=== PATIENT | female | born 1995 | race Caucasian/White ===

== ENCOUNTER 2017-05-08 13:48 | Emergency (ER) | payer SELFPAY ==
[~2017-05-08] VITALS: Ht 170.2 cm; Wt 93.2 kg
[2017-05-08 13:55] VITALS: TEMP 36.9; Ht 170.2 cm; Wt 93.2 kg
[2017-05-08] MEDS ORDERED: GLIP5TAB3 PO (14:26)
[2017-05-08] MEDS ORDERED: GLC/500 PO (14:26)
[2017-05-08] MEDS ORDERED: EFF75 PO (14:26)
--- NOTE | 2017-05-08 14:56 | EMERGENCY ROOM VISIT NOTE ---
History First contact with patient: 14:32 Chief Complaint: VOMITING Stated Complaint: VOMITING, NAUSEA, DIZZY History of Present Illness The patient is a 21 year old female with a past medical history of depression and Diabetes Mellitus who presents to the Emergency Room with complaints of nausea, vomiting, and diarrhea for 2 days. The patient recently moved to [place] and has not yet established with a physician. She ran out of her Effexor (75mg once daily) 1 1/2 weeks ago, and her Glipizide (5mg once daily) and Metformin (500mg BID) since April 21. She had been feeling very fatigued for the last few weeks and began having vomiting Sunday night any time she would try to eat. Sunday she began to feel better but then had worsening nausea and vomiting and passed out twice yesterday evening next to the toilet. She was laying down when she lost consciousness and denies any head trauma. She denies any fevers or chills, sore throat, shortness of breath, or chest pain but does appreciated enlarge suboccipital nodes. Review of Systems See HPI for pertinent positives and negatives. A total of ten systems were reviewed and were otherwise negative. Past Medical/Surgical History Medical Problems: (1) Depression (2) Diabetes mellitus Social History Smoking Status: Never Smoker Current/Historical Medications Scheduled Glipizide (Glucotrol), 5 MG PO DAILY Metformin Hcl (Glucophage), 500 MG PO BID Venlafaxine Hcl (Effexor), 75 MG PO DAILY Physical Exam Vital Signs Date Time Temp Pulse Resp B/P (MAP) Pulse Ox O2 Delivery O2 Flow Rate FiO2 05/08/17 19:04 82 20 149/104 98 Room Air 05/08/17 17:43 89 20 152/96 99 Room Air 05/08/17 16:43 83 20 97 Room Air 05/08/17 15:43 83 20 149/107 100 Room Air 05/08/17 13:55 36.9 90 17 153/102 98 Room Air Physical Exam GENERAL: Awake, alert, well-appearing, in no distress HENT: Normocephalic, atraumatic. Oropharynx unremarkable. Suboccipital lymph node enlargement. EYES: Normal conjunctiva. Sclera non-icteric. NECK: Supple. No nuchal rigidity. FROM. No JVD. RESPIRATORY: Clear to auscultation. CARDIAC: Regular rate, normal rhythm. Extremities warm and well perfused. Pulses equal. ABDOMEN: Soft, non-distended. Tenderness to palpation at the RUQ. No rebound or guarding. No masses. RECTAL: Deferred. MUSCULOSKELETAL: Chest examination reveals no tenderness. The back is symmetrical on inspection without obvious abnormality. LOWER EXTREMITIES: Calves are equal size bilaterally and non-tender. No edema. No discoloration. NEURO: Normal sensorium. No sensory or motor deficits noted. SKIN: No rash or jaundice noted. Medical Decision & Procedures Laboratory Results 05/08/17 15:09 Red Blood Count 5.01, Mean Corpuscular Volume 85.6, Mean Corpuscular Hemoglobin 30.3, Mean Corpuscular Hemoglobin Concent 35.4, Mean Platelet Volume 9.8, Neutrophils (%) (Auto) 65.4, Lymphocytes (%) (Auto) 24.6, Monocytes (%) (Auto) 7.6, Eosinophils (%) (Auto) 1.0, Basophils (%) (Auto) 1.1, Neutrophils # (Auto) 5.76, Lymphocytes # (Auto) 2.17, Monocytes # (Auto) 0.67, Eosinophils # (Auto) 0.09, Basophils # (Auto) 0.10 05/08/17 15:09 Test 05/08/17 15:09 05/08/17 18:00 White Blood Count 8.82 K/uL (4.8-10.8) Red Blood Count 5.01 M/uL (4.2-5.4) Hemoglobin 15.2 g/dL (12.0-16.0) Hematocrit 42.9 % (37-47) Mean Corpuscular Volume 85.6 fL (80-100) Mean Corpuscular Hemoglobin 30.3 pg (25-34) Mean Corpuscular Hemoglobin Concent 35.4 g/dl (32-36) Platelet Count 306 K/uL (130-400) Mean Platelet Volume 9.8 fL (7.4-10.4) Neutrophils (%) (Auto) 65.4 % Lymphocytes (%) (Auto) 24.6 % Monocytes (%) (Auto) 7.6 % Eosinophils (%) (Auto) 1.0 % Basophils (%) (Auto) 1.1 % Neutrophils # (Auto) 5.76 K/uL (1.4-6.5) Lymphocytes # (Auto) 2.17 K/uL (1.2-3.4) Monocytes # (Auto) 0.67 K/uL (0.11-0.59) Eosinophils # (Auto) 0.09 K/uL (0-0.5) Basophils # (Auto) 0.10 K/uL (0-0.2) RDW Standard Deviation 39.6 fL (36.4-46.3) RDW Coefficient of Variation 12.6 % (11.5-14.5) Immature Granulocyte % (Auto) 0.3 % Immature Granulocyte # (Auto) 0.03 K/uL (0.00-0.02) Venous Blood pH 7.41 (7.36-7.41) Venous Blood Partial Pressure CO2 46 mmHg (38.0-50.0) Venous Blood Partial Pressure O2 28 mmHg Venous Blood HCO3 28 mmol/L Venous Blood Oxygen Saturation < 60.0 % Venous Blood Base Excess 2.8 mEq/L Anion Gap 7.0 mmol/L (3-11) Est Creatinine Clear Calc Drug Dose 138.6 ml/min Estimated GFR () 132.4 Estimated GFR (Non- 114.2 BUN/Creatinine Ratio 15.2 (10-20) Calcium Level 9.2 mg/dl (8.5-10.1) Total Bilirubin 0.5 mg/dl (0.2-1) Direct Bilirubin < 0.1 mg/dl (0-0.2) Aspartate Amino Transf (AST/SGOT) 26 U/L (15-37) Alanine Aminotransferase (ALT/SGPT) 44 U/L (12-78) Alkaline Phosphatase 78 U/L (45-117) Total Protein 8.6 gm/dl (6.4-8.2) Albumin 4.1 gm/dl (3.4-5.0) Lipase 182 U/L (73-393) Beta-Hydroxybutyric Acid 1.63 mg/dL (0.2-2.81) Monoscreen NEG (NEG) Urine Test NEG (NEG) Medications Administered Medications (Trade) Dose Ordered Sig/Juliana Route Start Time Stop Time Status Last Admin Dose Admin Sodium Chloride 1,000 ml @ 999 mls/hr Q1H1M ONCE IV 05/08/17 15:00 05/08/17 16:00 DC 05/08/17 15:00 999 MLS/HR Sodium Chloride 1,000 ml @ 125 mls/hr Q8H IV 05/08/17 15:00 06/07/17 14:59 05/08/17 16:00 125 MLS/HR Metformin HCl (Glucophage Tab) 500 mg ONE ONCE PO 05/08/17 17:15 05/08/17 17:16 DC 05/08/17 17:42 500 MG Glipizide (Glucotrol Tab) 5 mg NOW ONCE PO 05/08/17 17:15 05/08/17 17:16 DC 05/08/17 17:43 5 MG ED Course - Patient evaluated in the ED, on exam found to have RUQ tenderness to palpation - Lab work: CBC, BMP, LFT, Lipase, Ketones, VBG, Monospot test - Imaging: RUQ US - Laboratory workup negative including no acute findings on RUQ US - Patient reports improved nausea - Restarted patient Metformin and Glipizide Medical Decision Patient is a 21 year old female that presents with a 2 days history of nausea, vomiting, and diarrhe Etiologies such as appendicitis, diverticulitis, obstruction, inflammatory bowel disease, renal colic, PUD, biliary pathology, pancreatitis, mesenteric ischemia, infections, genitourinary, UTI, perforated viscus, as well as others were entertained. Impression Primary Impression: Vomiting Additional Impression: Nausea, vomiting, and diarrhea Departure Information Dispostion Home / Self-Care Condition GOOD Prescriptions Ondansetron Hcl (ZOFRAN) 4 Mg Tab 4 MG PO Q8H Y for Nausea for 2 Days, #6 TAB Prov: Jeremy Garcias MD 05/08/17 Referrals Gia Velarde (PCP) Patient Instructions [facility] Additional Instructions Zofran 4mg: Take one every six hours as needed for nausea. Avoid alcohol, operating machinery or dangerous equipment, working on ladders or roofs, DRIVING , or situations where being under the influence may be dangerous. You were restarted on Glipizide 5mg and Metformin 500mg in the Emergency department. Resume your regular home medications when you establish with a PCP tomorrow. Rest and drink plenty of fluids as tolerated. Slow sips of water or sports drinks are recommended instead of large amounts all at once. Once your stomach is settled start with a clear liquid diet (jello, soup broth, etc.) and then advance as tolerated. You should avoid full, heavy meals for about 24 hrs from the time your symptoms resolved. Return to the emergency department in 8-12 hours for reevaluation or sooner if the pain worsens, migrates to the right lower part of your abdomen, vomiting occurs, or you feel it necessary. Return to the ER immediately for worsening or persistent abdominal pain, vomiting, fevers, chest pains, difficulty breathing, black or bloody stools, worsening of your condition, or as needed. Resident Tracking Resident Involvement: Resident Care Provided Care Provided: Adult ED Problem Qualifiers Primary Impression: Vomiting Vomiting type: unspecified Vomiting Intractability: intractable Nausea presence: with nausea Qualified Codes: R11.2 - Nausea with vomiting, unspecified
[2017-05-08] MEDS ORDERED: SODIUM CHLORIDE 0.9% 1000ML 1,000 ML IV SCH (15:00)
[2017-05-08] MEDS ORDERED: SODIUM CHLORIDE 0.9% 1000ML 1,000 ML IV ONE (15:00)
[2017-05-08 15:24] LABS: BASO % 1.1 %; COMPLETE YES; HEMATOCRIT 42.9 % (37-47); IG% 0.3 %; LYMPH % 24.6 %; LYMPH ABS # 2.17 K/uL (1.2-3.4); MEAN CELL VOLUME 85.6 fL (80-100); MEAN CORPUSCULAR HEMOGLOBIN 30.3 pg (25-34); MEAN CORPUSCULAR HGB CONC 35.4 g/dl (32-36); MEAN PLATELET VOLUME 9.8 fL (7.4-10.4); MONO % 7.6 %; NEUT % 65.4 %; PLATELET COUNT 306 K/uL (130-400); RED BLOOD COUNT 5.01 M/uL (4.2-5.4); WHITE BLOOD COUNT 8.82 K/uL (4.8-10.8)
[2017-05-08 15:30] LABS: VEN BLOOD GAS BASE EXCESS 2.8 mEq/L; VENOUS BLOOD GAS PCO2 46 mmHg (38.0-50.0); VENOUS BLOOD GAS PO2 28 mmHg
[2017-05-08 15:31] LABS: VEN BLD GAS O2 SATURATION < 60.0 %
[2017-05-08 15:51] LABS: ALT/SGPT 44 U/L (12-78); AST/SGOT 26 U/L (15-37); BLOOD UREA NITROGEN 11 mg/dl (7-18); BUN/CREATININE RATIO 15.2 (10-20); CALCIUM 9.2 mg/dl (8.5-10.1); CARBON DIOXIDE 28 mmol/L (21-32); CHLORIDE 101 mmol/L (98-107); CREATININE 0.74 mg/dl (0.60-1.20); GLUCOSE 221 mg/dl (70-99); POTASSIUM 3.8 mmol/L (3.5-5.1); SODIUM 136 mmol/L (136-145)
[2017-05-08 15:54] LABS: ALKALINE PHOSPHATASE 78 U/L (45-117); BETA-HYDROXYBUTYRATE 1.63 mg/dL (0.2-2.81)
--- NOTE | 2017-05-08 16:20 | DIAGNOSTIC IMAGING REPORT ---
GALLBLADDER-ABD LIMITED CLINICAL HISTORY: 21 years-old Female presenting with RUQ pain. TECHNIQUE: Real-time grayscale and limited color Doppler ultrasound imaging of the abdomen limited to the right upper quadrant was performed. COMPARISON: None. FINDINGS: Pancreas: Largely obscured due to overlying bowel gas. Liver: Markedly hyperechogenic parenchyma with obscuration of the right hemidiaphragm, likely indicating marked hepatic steatosis. The liver measures 18.6 cm in maximal sagittal dimension. No sonographic evidence of hepatic mass. Main portal vein patent with normal directional flow. Biliary: No intrahepatic biliary ductal dilatation. Common bile duct measures up to 7 mm in diameter. Gallbladder: No evidence of gallstones, gallbladder wall thickening, gallbladder distention, or pericholecystic fluid or inflammatory change. Right kidney: Grossly normal in appearance. No hydronephrosis. Ascites: None. IMPRESSION: 1. Hepatic steatosis. Correlate with liver function tests to exclude steatohepatitis. 2. No cholelithiasis or evidence of cholecystitis. Mild prominence of the extrahepatic bile duct. If there is continuing clinical concern, this could be further evaluated with MRCP. Electronically signed by: Collin Pettit M.D. 05/08/2017 4:19 PM Dictated Date/Time: 05/08/2017 4:17 PM
[2017-05-08] MEDS ORDERED: METFORMIN HCL 500 MG TAB PO ONE (17:15)
[2017-05-08 19:04] VITALS: BP 149/104; PULSE 82; O2SAT 98
[2017-05-08] MEDS ORDERED: ONDA4TAB46 PO (19:12)
--- NOTE | 2017-05-08 21:57 | EMERGENCY ROOM VISIT NOTE ---
History Report prepared by Iglesia: Minor Alcazar Under the Supervision of: Dr. Rigoberto Gates M.D. First contact with patient: 14:32 Chief Complaint: VOMITING Stated Complaint: VOMITING, NAUSEA, DIZZY History of Present Illness The patient is a 21 year old female who presents to the Emergency Room with complaints of intermittent vomiting and nausea beginning two days ago. The patient states she just moved to [place] and has not established a PCP. She reports she has a history of diabetes mellitus and depression. The patient notes she has not taken her Effexor for 10 days and her glipizide and metformin for 19 days because she ran out. She states a few weeks ago, she started to not feel well. The patient reports two days ago, she began to experience vomiting and diarrhea upon eating. She notes her diarrhea was normal without blood. The patient states she has not been able to eat or drink because she vomits shortly after. She reports she thought she was getting better, until she had another episode yesterday. The patient notes she was at work yesterday, and she experienced two episodes of unconsciousness from vomiting. She denies trauma from her loss of consciousness because she was already on the floor. The patient reports she cannot stand without becoming nauseous and sweaty. She states she went to [employer] earlier, and her blood sugar was 250. The patient reports her blood sugar is typically high even when she is on her medication. She denies blood in her stool, chest pain, shortness of breath, and the chance of being . The patient notes her last normal menstrual period was last week, and she cannot have kids because she has a hormone imbalance and PCO. She states she has not found a PCP because she is currently switching insurances, but she has an appointment tomorrow with a new PCP. The patient denies a history of a cholecystectomy. Source of History: patient Onset: two days ago Position: other (global) Quality: other (nausea and vomiting) Timing: intermittent Modifying Factors (Worsening): other (standing) Associated Symptoms: + LOC, + diarrhea, No chest pain, No SOB, No hematochezia Note: Associated symptoms: decreased appetite and fluid intake Denies: chance of being , Review of Systems See HPI for pertinent positives & negatives. A total of 10 systems reviewed and were otherwise negative. Past Medical & Surgical Medical Problems: (1) Depression (2) Diabetes mellitus Family History Patient reports no known family medical history. Social History Smoking Status: Never Smoker Marital Status: Occupation Status: employed Current/Historical Medications Scheduled Glipizide (Glucotrol), 5 MG PO DAILY Metformin Hcl (Glucophage), 500 MG PO BID Venlafaxine Hcl (Effexor), 75 MG PO DAILY Scheduled PRN Ondansetron Hcl (Zofran), 4 MG PO Q8H PRN for Nausea Allergies Coded Allergies: Sumatriptan (Unverified Allergy, Unknown, ., 05/08/17) Physical Exam Vital Signs Date Time Temp Pulse Resp B/P (MAP) Pulse Ox O2 Delivery O2 Flow Rate FiO2 05/08/17 19:04 82 20 149/104 98 Room Air 05/08/17 17:43 89 20 152/96 99 Room Air 05/08/17 16:43 83 20 97 Room Air 05/08/17 15:43 83 20 149/107 100 Room Air 05/08/17 13:55 36.9 90 17 153/102 98 Room Air Physical Exam Constitutional: Vital signs reviewed. Eyes: Pupils are equal round reactive to light. Conjunctiva are noninjected. ENT: Pharynx is clear without erythema or exudate. Mucous membranes are dry. Neck supple without meningeal signs. Respiratory: Clear to auscultation bilaterally. Breath sounds are equal bilaterally. Cardiovascular: Regular rate and rhythm. No rubs or gallops. GI: Soft, nondistended and right upper quadrant tenderness. Negative Sarmiento's sign. Bowel sounds are present. Musculoskeletal: No peripheral edema. No lower extremity tenderness. Integumentary: No cyanosis. Neurological: The patient is awake and alert. No focal deficits. Psychiatric: Normal affect. Medical Decision & Procedures ER Provider Diagnostic Interpretation: Radiology results as stated below per my review and the radiologist's interpretation: GALLBLADDER-ABD LIMITED CLINICAL HISTORY: 21 years-old Female presenting with RUQ pain. TECHNIQUE: Real-time grayscale and limited color Doppler ultrasound imaging of the abdomen limited to the right upper quadrant was performed. COMPARISON: None. FINDINGS: Pancreas: Largely obscured due to overlying bowel gas. Liver: Markedly hyperechogenic parenchyma with obscuration of the right hemidiaphragm, likely indicating marked hepatic steatosis. The liver measures 18.6 cm in maximal sagittal dimension. No sonographic evidence of hepatic mass. Main portal vein patent with normal directional flow. Biliary: No intrahepatic biliary ductal dilatation. Common bile duct measures up to 7 mm in diameter. Gallbladder: No evidence of gallstones, gallbladder wall thickening, gallbladder distention, or pericholecystic fluid or inflammatory change. Right kidney: Grossly normal in appearance. No hydronephrosis. Ascites: None. IMPRESSION: 1. Hepatic steatosis. Correlate with liver function tests to exclude steatohepatitis. 2. No cholelithiasis or evidence of cholecystitis. Mild prominence of the extrahepatic bile duct. If there is continuing clinical concern, this could be further evaluated with MRCP. Electronically signed by: Collin Pettit M.D. 05/08/2017 4:19 PM Dictated Date/Time: 05/08/2017 4:17 PM Laboratory Results 05/08/17 15:09 Red Blood Count 5.01, Mean Corpuscular Volume 85.6, Mean Corpuscular Hemoglobin 30.3, Mean Corpuscular Hemoglobin Concent 35.4, Mean Platelet Volume 9.8, Neutrophils (%) (Auto) 65.4, Lymphocytes (%) (Auto) 24.6, Monocytes (%) (Auto) 7.6, Eosinophils (%) (Auto) 1.0, Basophils (%) (Auto) 1.1, Neutrophils # (Auto) 5.76, Lymphocytes # (Auto) 2.17, Monocytes # (Auto) 0.67, Eosinophils # (Auto) 0.09, Basophils # (Auto) 0.10 05/08/17 15:09 Test 05/08/17 15:09 05/08/17 18:00 White Blood Count 8.82 K/uL (4.8-10.8) Red Blood Count 5.01 M/uL (4.2-5.4) Hemoglobin 15.2 g/dL (12.0-16.0) Hematocrit 42.9 % (37-47) Mean Corpuscular Volume 85.6 fL (80-100) Mean Corpuscular Hemoglobin 30.3 pg (25-34) Mean Corpuscular Hemoglobin Concent 35.4 g/dl (32-36) Platelet Count 306 K/uL (130-400) Mean Platelet Volume 9.8 fL (7.4-10.4) Neutrophils (%) (Auto) 65.4 % Lymphocytes (%) (Auto) 24.6 % Monocytes (%) (Auto) 7.6 % Eosinophils (%) (Auto) 1.0 % Basophils (%) (Auto) 1.1 % Neutrophils # (Auto) 5.76 K/uL (1.4-6.5) Lymphocytes # (Auto) 2.17 K/uL (1.2-3.4) Monocytes # (Auto) 0.67 K/uL (0.11-0.59) Eosinophils # (Auto) 0.09 K/uL (0-0.5) Basophils # (Auto) 0.10 K/uL (0-0.2) RDW Standard Deviation 39.6 fL (36.4-46.3) RDW Coefficient of Variation 12.6 % (11.5-14.5) Immature Granulocyte % (Auto) 0.3 % Immature Granulocyte # (Auto) 0.03 K/uL (0.00-0.02) Venous Blood pH 7.41 (7.36-7.41) Venous Blood Partial Pressure CO2 46 mmHg (38.0-50.0) Venous Blood Partial Pressure O2 28 mmHg Venous Blood HCO3 28 mmol/L Venous Blood Oxygen Saturation < 60.0 % Venous Blood Base Excess 2.8 mEq/L Anion Gap 7.0 mmol/L (3-11) Est Creatinine Clear Calc Drug Dose 138.6 ml/min Estimated GFR () 132.4 Estimated GFR (Non- 114.2 BUN/Creatinine Ratio 15.2 (10-20) Calcium Level 9.2 mg/dl (8.5-10.1) Total Bilirubin 0.5 mg/dl (0.2-1) Direct Bilirubin < 0.1 mg/dl (0-0.2) Aspartate Amino Transf (AST/SGOT) 26 U/L (15-37) Alanine Aminotransferase (ALT/SGPT) 44 U/L (12-78) Alkaline Phosphatase 78 U/L (45-117) Total Protein 8.6 gm/dl (6.4-8.2) Albumin 4.1 gm/dl (3.4-5.0) Lipase 182 U/L (73-393) Beta-Hydroxybutyric Acid 1.63 mg/dL (0.2-2.81) Monoscreen NEG (NEG) Urine Test NEG (NEG) Laboratory results as reviewed by me. Medications Administered Medications (Trade) Dose Ordered Sig/Juliana Route Start Time Stop Time Status Last Admin Dose Admin Sodium Chloride 1,000 ml @ 999 mls/hr Q1H1M ONCE IV 05/08/17 15:00 05/08/17 16:00 DC 05/08/17 15:00 999 MLS/HR Sodium Chloride 1,000 ml @ 125 mls/hr Q8H IV 05/08/17 15:00 05/08/17 19:28 DC 05/08/17 16:00 125 MLS/HR Metformin HCl (Glucophage Tab) 500 mg ONE ONCE PO 05/08/17 17:15 05/08/17 17:16 DC 05/08/17 17:42 500 MG Glipizide (Glucotrol Tab) 5 mg NOW ONCE PO 05/08/17 17:15 05/08/17 17:16 DC 05/08/17 17:43 5 MG ED Course 1432: The patient was evaluated in room B11B by the resident under my supervision. A complete history and physical exam was performed. 1459: The patient was evaluated by me. A complete history and physical exam was performed. 1500: Ordered Sodium Chloride 1000 ml @ 125 mls/hr IV, Sodium Chloride 1000 ml @ 999 mls/hr IV 1705: Upon reevaluation, the patient appeared to have improvement of her symptoms. I discussed tonight's findings with her. She verbalized agreement of the treatment plan. The patient will be discharged home when she receives her medication. 1715: Ordered Glipizide 5mg PO, Metformin HCl 500mg PO. Medical Decision This is a 21-year-old female who presents with vomiting, diarrhea and not feeling well. Differential diagnosis includes diabetic ketoacidosis, UTI, cholelithiasis, pancreatitis, peptic ulcer disease, dehydration. I did perform a limited focused review of portions of the patient's old chart on the electronic medical record. The patient has had no recent pertinent visits to this hospital. I did evaluate the patient as noted above. The patient is a diabetic and has not had her meds since early this month. She has developed an illness over the past 2 days including vomiting and diarrhea. She has no prior history of DKA. She does have an appointment tomorrow to see a new PCP. IV access was established. The patient was treated with normal saline IV. I did order and review the patient's blood work as noted in the electronic medical record. She does have hyperglycemia but no evidence of DKA. The patient did feel better and was able to drink liquids here. She was given a dose of her diabetic meds and will follow tomorrow with her doctor for prescriptions and further care. She was discharged with a prescription for Zofran. Resident Physician Supervision Note: I did evaluate and examine this patient myself. I did guide management for the patient. I agree with the resident's (Dr. Garcias) assessment as discussed. Please see the resident's dictation for further details. Medication Reconcilliation Current Medication List: was personally reviewed by me Blood Pressure Screening Patient's blood pressure: Elevated blood pressure Blood pressure disposition: Referred to PCP Impression Primary Impression: Nausea, vomiting, and diarrhea Additional Impressions: Hyperglycemia Noncompliance with medication regimen Dehydration Scribe Attestation The scribe's documentation has been prepared under my direct and personally reviewed by me in its entirety. I confirm that the note above accurately reflects all work, treatment, procedures, and medical decision making performed by me. Departure Information Dispostion Home / Self-Care Prescriptions Ondansetron Hcl (ZOFRAN) 4 Mg Tab 4 MG PO Q8H Y for Nausea for 2 Days, #6 TAB Prov: Jeremy Garcias MD 05/08/17 Referrals Gia Velarde (PCP) Forms HOME CARE DOCUMENTATION FORM, IMPORTANT VISIT INFORMATION Patient Instructions [facility] Additional Instructions Zofran 4mg: Take one every six hours as needed for nausea. Avoid alcohol, operating machinery or dangerous equipment, working on ladders or roofs, DRIVING , or situations where being under the influence may be dangerous. You were restarted on Glipizide 5mg and Metformin 500mg in the Emergency department. Resume your regular home medications when you establish with a PCP tomorrow. Rest and drink plenty of fluids as tolerated. Slow sips of water or sports drinks are recommended instead of large amounts all at once. Once your stomach is settled start with a clear liquid diet (jello, soup broth, etc.) and then advance as tolerated. You should avoid full, heavy meals for about 24 hrs from the time your symptoms resolved. Return to the emergency department in 8-12 hours for reevaluation or sooner if the pain worsens, migrates to the right lower part of your abdomen, vomiting occurs, or you feel it necessary. Return to the ER immediately for worsening or persistent abdominal pain, vomiting, fevers, chest pains, difficulty breathing, black or bloody stools, worsening of your condition, or as needed. Problem Qualifiers
== END 2017-05-08 19:21 | disposition home or self-care (01) ==
LOC: C.EDB 13:49
DX: R11.2 Nausea with vomiting, unspecified (principal); R19.7 Diarrhea, unspecified; F32.9 Major depressive disorder, single episode, unspecified; E11.9 Type 2 diabetes mellitus without complications; Z79.84 Long term (current) use of oral hypoglycemic drugs

== ENCOUNTER 2023-09-05 23:37 | Inpatient (IN) ==
--- NOTE | 2023-09-06 00:07 | History & Physical Report ---
Date of Service September 06, 2023 Assessment & Plan (1) premature rupture of membranes (PPROM) with unknown onset of labor: Plan: Sterile speculum exam is performed there is some dark blood in the vagina there is view of the cervical os it appears minimally open there is no actual bleeding from the os of the membranes appear to be excessive exuding and some fluid appears to be dripping from the cervical os and AmniSure is positive, nitrazine is not performed due to the blood. It appears clinically to be ruptured membranes bedside ultrasound is performed and fluid appears subjectively to be low the patient is known to have an ultrasound yesterday with a normal DVP as this was part of her hypertension protocol. We do not have her group B strep back yet so she will be admitted treated with penicillin and augmented into labor I considered betamethasone however she is a true diabetic and I think this will worsen her sugars off considerably and since induction process will be need to be undertaken I will withhold these. We discussed the prematurity however she is over 36 weeks and I reassured her that at this stage she is a candidate to stay here Will consider Pitocin however will monitor briefly to ensure bleeding is not significantly worse before Pitocin is started History of Present Illness Primary Care Provider: Rigoberto Arredondo DO Noted to have a sudden gush of fluid this evening and then went to the restroom and noted it to be bright red headed straight to the hospital and was assessed and while changing was still having bleeding she is having some back pain however no abdominal pain states her baby has been active today she is followed for multiple problems in her as below SERGIO Calculator Estimated Delivery Date Method Current WG Current Estimate 10/01/23 LMP (Certain) 36w 1d Other Estimates 09/28/23 Ultrasound #1 36w 4d LMP: 12/17/22 : 1 Full term: 0 Premature: 0 Total Number of Induced Abortions: 0 Total Number of Spontaneous Abortions: 0 Ectopics: 0 Multiple births: 0 Number of Living Children: 0 and Delivery Plans DM Protocol *Baby ASA daily, start 12-28wks, continue until del *Ophthalmology consult--seeing *Dietary consult *Qmonthly urine cultures * [id number] (05/22/23 @ [facility] [place])--nl akh *Twice weekly NST's @32 or 34wks *Serial Growth US starting 28wks *Baseline 24hr Urine and Q trimester--baseline <115; 3rd tri 158.5 *EKG (Cardio [id number])--12/31/22 *Deliver by [facility] chronic Hypertension - on labetalol 100mg PO BID *Baby ASA daily start 12-28 wks, continue until delivery *wkly NST's @32wks and twice wkly @36 wks *Serial Growth US @ 24 (doppler only if abnml) *Baseline 24hr urine (additioinal PRN)--<115 akh *weekly KAYCEE's @ 32wk(on Meds) *Deliver [id number] (on Meds) Bipolar Disorder - on Lamictal, follows with PCP Spinal lumbar stenosis - Needs anesthesia consult at 32w (08/10/23 @ 1030) Rubella Non-Immune - Needs MMR after delivery Allergies Allergy/AdvReac Type Severity Reaction Status Date / Time mushroom Allergy Unknown Itchy thoat Verified 09/05/23 23:59 sumatriptan Allergy Unknown Vomiting Verified 09/05/23 23:59 Home Medications Medication Instructions Recorded Confirmed Type acetone (urine) test (Ketone Urine #50 ea 02/09/23 09/04/23 Rx Test strips) blood-glucose sensor (Dexcom G7 #3 ea 02/09/23 09/04/23 Rx Sensor device) pen needle, diabetic 33 gauge x #200 ea 03/14/23 09/04/23 Rx 1/4" (Comfort EZ Pen [place]) aspirin 81 mg tablet,delayed 81 mg PO DAILY 04/30/23 09/05/23 History release (Adult Low Dose Aspirin) blood sugar diagnostic (ReliOn 04/30/23 09/04/23 History Prime Test Strips) prenat.vits,jorge luis,[id number] 1 tab PO DAILY 04/30/23 09/05/23 History lamotrigine 150 mg tablet 75 mg PO DAILY 07/03/23 09/05/23 History breast pump #1 ea 07/10/23 09/04/23 Rx labetalol 100 mg tablet 200 mg (2 x 100 mg) PO BID 30 days 08/31/23 09/05/23 Rx #120 tabs insulin aspart U-100 100 unit/mL 50 unit (0.5 mL) subcut TID #45 mL 09/03/23 09/06/23 Rx (3 mL) subcutaneous pen (Novolog FlexPen U-100 Insulin aspart) insulin glargine U-300 conc 300 See Rx Instructions subcut 09/03/23 09/06/23 Rx unit/mL (1.5 mL) subcutaneous pen .COMPLEX #15 mL (Toujeo SoloStar U-300 Insulin) Patient History Medical History GERD (gastroesophageal reflux disease) during History of anesthesia complications patient states that she requires higher than expected amounts of pain medication/awareness during wisdom teeth extraction in dentist office Lumbar stenosis dx at age 13 y/o; associated with back pain, occasionally associated with bilateral leg weakness-denies bladder or bowel changes; progressively worsening over the years-denies recent change or worsening. Bipolar 1 disorder On lamictal Chronic hypertension Labetalol started while Type 2 diabetes mellitus dx at age 10- insulin Surgical History Hx of wisdom tooth extraction done in dentist office per patient Family History Mother Breast cancer Hypertension Diabetes Systemic lupus Father Myocardial infarction Hypertension Diabetes Grandmother (Paternal) Myocardial infarction Denies family history of Ovarian cancer Prostate cancer Lung cancer Colorectal cancer Social History Smoking Status: Never smoker Second Hand Exposure: Yes; Do You Dip or Chew Tobacco: No; Hx Alcohol Use: No Hx Substance Use: No Preferred Language: Albanian Communication Ability: Effective Hearing Ability: Normal Pipelines Laborer Required: No Beliefs That Will Affect Care: None marital status: marital status details: Chao Benavides [phone] Current Living Situation: Spouse Current Living Situation Comment: and stepdaughter current occupational status: employed 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 How many Children do You have: 0 Other Information That Helps Us Care for You: No Feels Safe at Home: Yes Safety Concerns: Feels Safe At This Time Childhood Exposure to Second-Hand Smoke: Yes caffeine: No Dental Care, Regularly: No Physical Activity Frequency: Does not Exercise Seatbelt Use: always Sunscreen Use: Yes Assistive Devices: Glasses Physical Exam Constitutional: WD/WN, vitals as above well developed and well nourished Respiratory: normal respiratory effort, lungs clear to auscultation normal respiratory effort Cardiovascular: RRR, no murmur, no edema Gastrointestinal (Abdomen): normal bowel sounds, soft, nontender, no hepatosplenomegaly Coding Level of Care Code None Diagnoses premature rupture of membranes (PPROM) with unknown onset of labor O42.919
[2023-09-06] MEDS ORDERED: DEXTROSE 50% 50 ML SYRINGE IV PRN (00:08)
[2023-09-06] MEDS ORDERED: INSULIN REGULAR 250 UNITS in SODIUM CHLORIDE 0.9% 247.5 ML IV PRN (00:08)
[2023-09-06] MEDS ORDERED: PENICILLIN GK 6 MU in DEXTROSE 5% 250 ML IV STA (00:08)
[2023-09-06] MEDS ORDERED: SODIUM CHLORIDE 0.9% 1,000 ML IV PRN (00:08)
[2023-09-06] MEDS ORDERED: OXYTOCIN 30 UNITS/NSS 30 UNITS/500 ML BAG IV PRN (00:08)
[2023-09-06] MEDS ORDERED: LIDOCAINE 1% LOCAL 20 ML VIAL INFIL PRN (00:08)
[2023-09-06] MEDS ORDERED: SODIUM CHLORIDE 0.9% 250 ML IV PRN (00:28)
[2023-09-06] MEDS: LACTATED RINGER'S 1,000 ML IV PRN ×4 (00:47→21:30)
[2023-09-06] MEDS: DEXTROSE 5% 1,000 ML IV PRN ×3 (00:58→21:29)
[2023-09-06 01:03] LABS: Hemoglobin 13.2 g/dl (12.0-16.0); Mean Corpuscular Hemoglobin 31.7 pg (25.0-34.0); Mean Corpuscular Hgb Conc 35.7 g/dL (32.0-36.0); Mean Corpuscular Volume 88.7 fL (80.0-100.0); Mean Platelet Volume 9.8 fL (9.4-12.4); Platelet Count 282 K/uL (130-400); RDW Coefficient of Variation 12.9 % (11.5-14.5); RDW Standard Deviation 41.6 fL (36.4-46.3); Red Blood Count 4.17 M/uL (4.20-5.40); White Blood Count 12.86 K/ul (4.8-10.8)
[2023-09-06 01:10] LABS: Albumin Globulin Ratio 1.2 (0.9-2); Albumin Level 3.8 gm/dl (3.4-5.0); BUN Creatinine Ratio 21.9 (10-20); Bilirubin Direct 0.1 mg/dl (0-0.2); Bilirubin,Total 0.3 mg/dl (0.2-1.0); Calcium 9.6 mg/dl (8.6-10.3); Creatinine Clr Calc Pharmacy 151.9 ml/min; Est GFR (African American) 138.8 ml/min; Est GFR (Non-African American) 119.7 ml/min; Globulin 3.2 gm/dl (2.5-4.0); Potassium 3.5 mmol/L (3.5-5.1)
[2023-09-06] MEDS: OXYTOCIN 30 UNITS/NSS 30 UNITS/500 ML BAG IV PRN (01:29)
[2023-09-06] MEDS: PENICILLIN GK 3 MU in DEXTROSE 5% 100 ML IV PRN ×2 (04:46→09:18)
--- NOTE | 2023-09-06 07:34 | Obstetrical Progress Note ---
Date of Service September 06, 2023 Assessment & Plan Admission and Anticipated Discharge Date Admission Date: September 06, 2023 Subjective Pitocin has been started her bleeding has resolved I am convinced again that this was rupture membranes with blood as opposed to pure bleeding event. The bleeding has as mentioned totally resolved. She is on Pitocin and seems to be bleeding has resolved we will increase by 2 specific forms. Labetalol Lamictal will be initiated she is on insulin as per protocol as she is diabetic. Continue induction of labor Results & Data Vital Signs (Past 12 Hours) Vital Signs Temp Pulse Resp BP 09/06/23 06:50 82 18 155/94 H 09/06/23 05:51 16 09/06/23 05:51 98.2 F 16 09/06/23 05:41 89 16 122/82 09/06/23 04:49 88 135/94 09/06/23 04:47 90 171/97 H 09/06/23 04:30 16 09/06/23 04:30 98.2 F 16 09/06/23 03:55 83 159/93 H 09/06/23 03:33 16 09/06/23 03:33 98.1 F 16 09/06/23 02:55 83 154/91 H 09/06/23 01:33 18 09/06/23 01:33 98.2 F 18 09/06/23 00:54 93 H 144/92 H 09/06/23 00:45 86 141/88 H 09/06/23 00:24 96 H 153/87 H 09/06/23 00:14 94 H 148/88 H 09/06/23 00:04 18 09/06/23 00:04 98.2 F 18 09/06/23 00:03 95 H 160/93 H PG Care Time/CCT Total # of Minutes Spent Total Time Spent with Patient: Total time spent is greater than 50% in coordination of care (as documented) at patient's floor/unit and/or counseling patient: Coding Level of Care Code None
[2023-09-06] MEDS ORDERED: Nursing to Pharmacy Communication SCH (07:45)
[2023-09-06] MEDS ORDERED: CALCIUM CARBONATE 500 MG CHEWABLE TAB PO PRN (08:12)
[2023-09-06] MEDS ORDERED: LABETALOL HCL IV 5 MG/ML 20ML IV STA (08:15)
--- NOTE | 2023-09-06 08:19 | Labor Progress Brief Note ---
Date of Service September 06, 2023 Note blood pressure systolic have been elevated very recently I will give a dose of IV labetalol on top of this 10 mg contractions are getting stronger at this stage continue to induce for P PROM Blood pressures are definitely trending on the higher range to will discuss with Dr. Villarreal coming acetone recovery worker about the initiation of magnesium Assessment & Plan Admission and Anticipated Discharge Date Admission Date: September 06, 2023 Results & Data Vital Signs (Past 12 Hours) Vital Signs Temp Pulse Resp BP 09/06/23 08:12 81 168/99 H 09/06/23 07:48 82 170/99 H 09/06/23 06:50 82 18 155/94 H 09/06/23 05:51 16 09/06/23 05:51 98.2 F 16 09/06/23 05:41 89 16 122/82 09/06/23 04:49 88 135/94 09/06/23 04:47 90 171/97 H 09/06/23 04:30 16 09/06/23 04:30 98.2 F 16 09/06/23 03:55 83 159/93 H 09/06/23 03:33 16 09/06/23 03:33 98.1 F 16 09/06/23 02:55 83 154/91 H 09/06/23 01:33 18 09/06/23 01:33 98.2 F 18 09/06/23 00:54 93 H 144/92 H 09/06/23 00:45 86 141/88 H 09/06/23 00:24 96 H 153/87 H 09/06/23 00:14 94 H 148/88 H 09/06/23 00:04 18 09/06/23 00:04 98.2 F 18 09/06/23 00:03 95 H 160/93 H Coding Level of Care Code None
[2023-09-06] MEDS ORDERED: fentANYL 2 MCG/ML BUPIVacaine 0.125%-NSS 100ML BAG ONE (08:32)
[2023-09-06] MEDS ORDERED: ePHEDrine sulfate 50 MG/ML AMP ONE (08:32)
[2023-09-06] MEDS ORDERED: SODIUM CHLORIDE 0.9% PF INJ 10 ML VIAL ONE (08:32)
[2023-09-06] MEDS ORDERED: fentaNYL citrate PF 100 MCG/2 ML VIAL ONE (08:32)
[2023-09-06] MEDS ORDERED: LIDOCAINE 2%/EPINEPHRINE 1:200,000 20 ML PF ONE (08:33)
[2023-09-06] MEDS ORDERED: BUPIVACAINE 0.25% PF 30 ML VIAL ONE (08:33)
[2023-09-06] MEDS ORDERED: lamoTRIgine 25 MG TAB PO SCH ×2 (09:00→21:00)
[2023-09-06] MEDS: LABETALOL HCL 200 MG TAB PO SCH ×2 (09:20→20:59)
--- NOTE | 2023-09-06 09:31 | Anesthesiology Consultation ---
Date of Service September 06, 2023 Assessment & Plan Chart Review Chart Review: Acceptable Risk for Labor Epidural Consults Requested none History Height/Weight Height: 5 ft 7 in Weight: 94.801 kg Allergies Allergy/AdvReac Type Severity Reaction Status Date / Time mushroom Allergy Unknown Itchy thoat Verified 09/05/23 23:59 sumatriptan Allergy Unknown Vomiting Verified 09/05/23 23:59 Medications Home Medications Medication Instructions Recorded Confirmed Last Taken acetone (urine) test (Ketone Urine #50 ea 02/09/23 09/04/23 Unknown Test strips) blood-glucose sensor (Dexcom G7 #3 ea 02/09/23 09/04/23 Unknown Sensor device) pen needle, diabetic 33 gauge x #200 ea 03/14/23 09/04/23 Unknown 08/16" (Comfort EZ Pen [place]) aspirin 81 mg tablet,delayed 81 mg PO DAILY 04/30/23 09/05/23 09/05/23 release (Adult Low Dose Aspirin) blood sugar diagnostic (ReliOn 04/30/23 09/04/23 Unknown Prime Test Strips) prenat.vits,jorge luis,[id number] 1 tab PO DAILY 04/30/23 09/05/23 09/05/23 lamotrigine 150 mg tablet 75 mg PO DAILY 07/03/23 09/05/23 09/05/23 breast pump #1 ea 07/10/23 09/04/23 Unknown labetalol 100 mg tablet 200 mg (2 x 100 mg) PO BID 30 days 08/31/23 09/05/23 09/05/23 #120 tabs insulin aspart U-100 100 unit/mL 50 unit (0.5 mL) subcut TID #45 mL 09/03/23 09/06/23 09/06/23 (3 mL) subcutaneous pen (Novolog FlexPen U-100 Insulin aspart) insulin glargine U-300 conc 300 See Rx Instructions subcut 09/03/23 09/06/23 09/06/23 unit/mL (1.5 mL) subcutaneous pen .COMPLEX #15 mL (Toujeo SoloStar U-300 Insulin) Active Medications Generic Name Dose Route Start Last Admin Trade Name Freq PRN Reason Stop Dose Admin Lactated Ringer's 1,000 mls @ 125 mls/hr 09/06/23 00:08 09/06/23 08:43 Lr IV 09/08/23 00:07 999 mls/hr .Q8H PRN Administration L&D Protocol Protocol Dextrose 1,000 mls @ 100 mls/hr 09/06/23 00:08 09/06/23 08:50 D5w IV 10/06/23 00:07 100 mls/hr .Q10H PRN Infusion BSG 180 or below Protocol Insulin Human Regular 250 250 mls @ 0.5 mls/hr 09/06/23 00:08 09/06/23 08:50 units/ Sodium Chloride IV 10/06/23 00:07 0.5 units/hr .Q24H PRN 0.5 mls/hr BSG 80mg/dL or ABOVE Titration Protocol 0.5 UNITS/HR Penicillin G Potassium 3 mu/ 106 mls @ 100 mls/hr 09/06/23 03:08 09/06/23 09:18 Dextrose IV 09/16/23 03:07 100 mls/hr Q4H PRN Administration GBS(+) Until Delivery Oxytocin 30 units in 500 mls @ 9 mls/hr 09/06/23 00:12 09/06/23 08:00 Pitocin 30 Units/Nss IV 09/08/23 00:11 0.54 units/hr .Q24H PRN 9 mls/hr Labor Induction/Augmentation Titration Protocol 0.54 UNITS/HR Past Medical History Medical History GERD (gastroesophageal reflux disease) during History of anesthesia complications patient states that she requires higher than expected amounts of pain medication/awareness during wisdom teeth extraction in dentist office Lumbar stenosis dx at age 13 y/o; associated with back pain, occasionally associated with bilateral leg weakness-denies bladder or bowel changes; progressively worsening over the years-denies recent change or worsening. Bipolar 1 disorder On lamictal Chronic hypertension Labetalol started while Type 2 diabetes mellitus dx at age 10- insulin Past Family History Family History Mother Breast cancer Hypertension Diabetes Systemic lupus Father Myocardial infarction Hypertension Diabetes Grandmother (Paternal) Myocardial infarction Denies family history of Ovarian cancer Prostate cancer Lung cancer Colorectal cancer Past Surgical History Surgical History Hx of wisdom tooth extraction done in dentist office per patient Social History Smoking Status: Never smoker Do You Dip or Chew Tobacco: No Hx Alcohol Use: No Hx Substance Use: No substance use type: does not use Physical Exam Vital Signs Last Vital Signs Temp 36.8 C 09/06/23 05:51 Pulse 75 09/06/23 09:29 Resp 18 09/06/23 06:50 BP 144/78 H 09/06/23 09:29 Pulse Ox 99 09/06/23 09:28 Testing Laboratory Results 09/06/23 00:31 09/06/23 00:31 Blood Type A Positive 09/06/23 00:31 Antibody Screen NEGATIVE 09/06/23 00:31 09/06/23 09/06/23 09/06/23 08:50 07:52 06:51 POC Glucose 92 87 98 09/06/23 09/06/23 09/06/23 05:53 04:55 03:50 POC Glucose 90 77 76 09/06/23 09/06/23 09/06/23 02:31 01:27 00:23 POC Glucose 67 L* 89 67 L*
[2023-09-06] MEDS ORDERED: LIDOCAINE 2% MPF LOCAL 5 ML VIAL EPI PRN (09:33)
[2023-09-06] MEDS ORDERED: fentaNYL citrate PF 100 MCG/2 ML VIAL EPI STA (09:33)
[2023-09-06] MEDS ORDERED: fentaNYL citrate PF 100 MCG/2 ML VIAL EPI PRN (09:33)
[2023-09-06] MEDS ORDERED: NALOXONE HCL 0.4 MG/1 ML VIAL/CARP IV PRN (09:33)
[2023-09-06] MEDS ORDERED: ROPIVACAINE 0.5% PF 5 MG/ML 20 ML VIAL EPI PRN (09:33)
[2023-09-06] MEDS ORDERED: BUPIVACAINE 0.25% PF 30 ML VIAL EPI STA (09:33)
[2023-09-06] MEDS ORDERED: NALOXONE HCL 1 MG in SODIUM CHLORIDE 0.9% 1,000 ML IV PRN (09:33)
[2023-09-06] MEDS ORDERED: ePHEDrine sulfate 50 MG/ML AMP IV PRN (09:33)
[2023-09-06] MEDS ORDERED: LIDOCAINE 2%/EPINEPHRINE 1:200,000 20 ML PF EPI STA (09:33)
[2023-09-06] MEDS ORDERED: diphenhydrAMINE 50 MG/ML VIAL IV PRN (09:33)
[2023-09-06] MEDS ORDERED: SODIUM CHLORIDE 0.9% PF INJ 10 ML VIAL EPI STA (09:33)
[2023-09-06] MEDS ORDERED: BUPIVACAINE 0.25% PF 30 ML VIAL EPI PRN (09:33)
[2023-09-06] MEDS ORDERED: NALBUPHINE HCL 5 MG in SYRINGE 0 ML IV PRN (09:33)
[2023-09-06] MEDS ORDERED: SODIUM CHLORIDE 0.9% PF INJ 10 ML VIAL EPI PRN (09:33)
--- NOTE | 2023-09-06 10:15 | Labor Progress Brief Note ---
Date of Service September 06, 2023 Subjective comfortable with epidural Assessment & Plan (1) premature rupture of membranes (PPROM) with unknown onset of labor: (2) Chronic hypertension during : (3) Pre-existing type 2 diabetes mellitus during , antepartum: Plan continue our current plan with pitocin, bs are controlled with insulin drip. BPS are not in the severe range since epidural. no s/s of pet. Will monitor closely. fetus--category one. Admission and Anticipated Discharge Date Admission Date: September 06, 2023 Physical Exam Physical Exam: cx--3/80/-2 toco--q3-5min, pit at 11 efm--130s, mod variability, accels 160s, no decels Results & Data Vital Signs (Past 12 Hours) Vital Signs Temp Pulse Resp BP Pulse Ox 09/06/23 10:08 85 99 09/06/23 10:03 81 98 09/06/23 10:00 75 155/86 H 09/06/23 09:58 82 100 09/06/23 09:53 83 98 09/06/23 09:50 20 09/06/23 09:50 20 09/06/23 09:48 86 99 09/06/23 09:44 85 141/82 H 09/06/23 09:43 80 99 09/06/23 09:38 80 98 09/06/23 09:35 20 09/06/23 09:35 20 09/06/23 09:33 82 98 09/06/23 09:29 75 144/78 H 09/06/23 09:28 83 99 09/06/23 09:23 99 09/06/23 09:23 79 09/06/23 09:23 78 153/79 H 09/06/23 09:21 73 152/85 H 09/06/23 09:20 20 09/06/23 09:20 20 09/06/23 09:19 83 149/90 H 09/06/23 09:18 74 98 09/06/23 09:17 80 149/87 H 09/06/23 09:15 80 156/91 H 09/06/23 09:13 87 98 09/06/23 09:08 96 H 100 09/06/23 09:07 86 158/92 H 09/06/23 08:55 93 H 153/95 H 09/06/23 08:42 88 170/90 H 09/06/23 08:40 36.9 C 09/06/23 08:36 78 168/91 H 09/06/23 08:27 77 154/88 H 09/06/23 08:27 77 154/88 H 09/06/23 08:12 81 168/99 H 09/06/23 07:50 36.7 C 20 09/06/23 07:50 20 09/06/23 07:48 82 170/99 H 09/06/23 06:50 82 18 155/94 H 09/06/23 05:51 16 09/06/23 05:51 36.8 C 16 09/06/23 05:41 89 16 122/82 09/06/23 04:49 88 135/94 09/06/23 04:47 90 171/97 H 09/06/23 04:30 16 09/06/23 04:30 36.8 C 16 09/06/23 03:55 83 159/93 H 09/06/23 03:33 16 09/06/23 03:33 36.7 C 16 09/06/23 02:55 83 154/91 H 09/06/23 01:33 18 09/06/23 01:33 36.8 C 18 09/06/23 00:54 93 H 144/92 H 09/06/23 00:45 86 141/88 H 09/06/23 00:24 96 H 153/87 H 09/06/23 00:14 94 H 148/88 H 09/06/23 00:04 18 09/06/23 00:04 36.8 C 18 09/06/23 00:03 95 H 160/93 H Coding Level of Care Code None Diagnoses premature rupture of membranes (PPROM) with unknown onset of labor O42.919 Chronic hypertension during O10.919 Pre-existing type 2 diabetes mellitus during , antepartum O24.119
--- NOTE | 2023-09-06 13:20 | Labor Progress Brief Note ---
Date of Service September 06, 2023 Subjective comfortable Assessment & Plan (1) premature rupture of membranes (PPROM) with unknown onset of labor: (2) Chronic hypertension during : (3) Pre-existing type 2 diabetes mellitus during , antepartum: Plan iupc placed to monitor pitocin, inticially, contractions do not look close enough but good strength. pit to [id number]. sugars controlled. Pressures consistent with chtn status. fetus category one. Admission and Anticipated Discharge Date Admission Date: September 06, 2023 Physical Exam Physical Exam: cx--3.5/80/-2 iupc placed toco--q2-4min, pit at 15 efm--130s with mod variability, accels to 150s, no decels Results & Data Vital Signs (Past 12 Hours) Vital Signs Temp Pulse Resp BP Pulse Ox 09/06/23 13:14 82 142/81 H 09/06/23 13:13 83 97 09/06/23 13:08 89 97 09/06/23 13:03 88 98 09/06/23 13:00 90 140/83 09/06/23 12:58 80 98 09/06/23 12:53 88 98 09/06/23 12:48 83 99 09/06/23 12:44 77 135/89 09/06/23 12:43 83 99 09/06/23 12:38 82 98 09/06/23 12:33 79 97 09/06/23 12:31 20 09/06/23 12:31 20 09/06/23 12:29 79 136/85 09/06/23 12:28 79 97 09/06/23 12:23 80 98 09/06/23 12:18 81 97 09/06/23 12:15 83 134/84 09/06/23 12:13 85 99 09/06/23 12:10 20 09/06/23 12:10 20 09/06/23 12:08 94 H 98 09/06/23 12:03 87 98 09/06/23 11:59 86 137/89 09/06/23 11:58 91 H 98 09/06/23 11:53 88 98 09/06/23 11:48 91 H 97 09/06/23 11:46 86 140/93 09/06/23 11:45 18 09/06/23 11:45 18 09/06/23 11:43 86 98 09/06/23 11:38 87 98 09/06/23 11:33 94 H 98 09/06/23 11:30 18 09/06/23 11:30 18 09/06/23 11:29 86 142/86 H 09/06/23 11:28 88 97 09/06/23 11:23 90 97 09/06/23 11:18 88 98 09/06/23 11:15 18 09/06/23 11:15 18 09/06/23 11:14 83 131/83 09/06/23 11:13 85 96 09/06/23 11:08 88 97 09/06/23 11:03 95 09/06/23 11:03 86 09/06/23 11:03 85 93 09/06/23 10:59 93 H 132/83 09/06/23 10:58 92 H 96 09/06/23 10:53 96 H 96 09/06/23 10:50 37.2 C 09/06/23 10:50 20 09/06/23 10:50 20 09/06/23 10:48 91 H 97 09/06/23 10:44 81 142/87 H 09/06/23 10:43 83 97 09/06/23 10:38 87 96 09/06/23 10:35 20 09/06/23 10:35 20 09/06/23 10:33 84 97 09/06/23 10:29 97 H 142/84 H 09/06/23 10:28 93 H 97 09/06/23 10:23 88 97 09/06/23 10:20 20 09/06/23 10:20 20 09/06/23 10:18 86 99 09/06/23 10:15 84 150/91 H 09/06/23 10:13 92 H 99 09/06/23 10:08 85 99 09/06/23 10:05 20 09/06/23 10:05 20 09/06/23 10:03 81 98 09/06/23 10:00 75 155/86 H 09/06/23 09:58 82 100 09/06/23 09:53 83 98 09/06/23 09:50 20 09/06/23 09:50 20 09/06/23 09:48 86 99 09/06/23 09:44 85 141/82 H 09/06/23 09:43 80 99 09/06/23 09:38 80 98 09/06/23 09:35 20 09/06/23 09:35 20 09/06/23 09:33 82 98 09/06/23 09:29 75 144/78 H 09/06/23 09:28 83 99 09/06/23 09:23 99 09/06/23 09:23 79 09/06/23 09:23 78 153/79 H 09/06/23 09:21 73 152/85 H 09/06/23 09:20 20 09/06/23 09:20 20 09/06/23 09:19 83 149/90 H 09/06/23 09:18 74 98 09/06/23 09:17 80 149/87 H 09/06/23 09:15 80 156/91 H 09/06/23 09:13 87 98 09/06/23 09:08 96 H 100 09/06/23 09:07 86 158/92 H 09/06/23 08:55 93 H 153/95 H 09/06/23 08:42 88 170/90 H 09/06/23 08:40 36.9 C 09/06/23 08:36 78 168/91 H 09/06/23 08:27 77 154/88 H 09/06/23 08:27 77 154/88 H 09/06/23 08:12 81 168/99 H 09/06/23 07:50 36.7 C 20 09/06/23 07:50 20 09/06/23 07:48 82 170/99 H 09/06/23 06:50 82 18 155/94 H 09/06/23 05:51 16 09/06/23 05:51 36.8 C 16 09/06/23 05:41 89 16 122/82 09/06/23 04:49 88 135/94 09/06/23 04:47 90 171/97 H 09/06/23 04:30 16 09/06/23 04:30 36.8 C 16 09/06/23 03:55 83 159/93 H 09/06/23 03:33 16 09/06/23 03:33 36.7 C 16 09/06/23 02:55 83 154/91 H 09/06/23 01:33 18 09/06/23 01:33 36.8 C 18 Coding Level of Care Code None Diagnoses premature rupture of membranes (PPROM) with unknown onset of labor O42.919 Chronic hypertension during O10.919 Pre-existing type 2 diabetes mellitus during , antepartum O24.119
--- NOTE | 2023-09-06 16:22 | Labor Progress Brief Note ---
Date of Service September 06, 2023 Subjective comfortable Assessment & Plan (1) premature rupture of membranes (PPROM) with unknown onset of labor: (2) Pre-existing type 2 diabetes mellitus during , antepartum: (3) Chronic hypertension during : Plan blood sugars controlled. Pressures remain less than severe, asymptomatic. contractions appear adequate and have been for sometime. Hopefully on the edge of getting active. fetus category 2 at times secondary to variables but very reassuring. Admission and Anticipated Discharge Date Admission Date: September 06, 2023 Physical Exam Physical Exam: cx--4-5/100/-2 toco--q 2-2.5 min, PIt at 17, MVUs >100 efm--140s with mod variability, accels present to 170s, occasional variable/early noted Results & Data Vital Signs (Past 12 Hours) Vital Signs Temp Pulse Resp BP Pulse Ox 09/06/23 16:14 98 H 154/86 H 09/06/23 16:13 101 H 98 09/06/23 16:08 98 H 98 09/06/23 16:03 95 H 97 09/06/23 16:00 95 H 153/84 H 09/06/23 15:58 101 H 97 09/06/23 15:53 97 H 97 09/06/23 15:48 101 H 98 09/06/23 15:44 91 H 152/83 H 09/06/23 15:43 94 H 99 09/06/23 15:38 95 H 98 09/06/23 15:33 99 H 97 09/06/23 15:31 20 09/06/23 15:31 20 09/06/23 15:29 97 H 151/93 H 09/06/23 15:28 100 H 97 09/06/23 15:23 100 H 97 09/06/23 15:22 108 H 93 09/06/23 15:18 84 98 09/06/23 15:14 146/98 H 09/06/23 15:13 92 H 98 09/06/23 15:08 87 97 09/06/23 15:03 86 97 09/06/23 15:01 20 09/06/23 15:01 20 09/06/23 14:59 79 127/64 09/06/23 14:58 82 97 09/06/23 14:53 85 97 09/06/23 14:48 82 97 09/06/23 14:44 79 137/69 09/06/23 14:43 82 97 09/06/23 14:38 84 98 09/06/23 14:33 86 97 09/06/23 14:31 20 09/06/23 14:31 20 09/06/23 14:29 90 138/86 09/06/23 14:28 86 98 09/06/23 14:23 90 97 09/06/23 14:18 87 97 09/06/23 14:14 87 136/84 09/06/23 14:13 88 97 09/06/23 14:08 88 97 09/06/23 14:03 88 96 09/06/23 14:01 20 09/06/23 14:01 20 09/06/23 13:59 86 139/84 09/06/23 13:58 89 97 09/06/23 13:53 87 97 09/06/23 13:48 88 97 09/06/23 13:45 86 148/87 H 09/06/23 13:43 89 98 09/06/23 13:38 89 98 09/06/23 13:33 95 H 98 09/06/23 13:31 20 09/06/23 13:31 20 09/06/23 13:30 84 135/87 09/06/23 13:28 88 97 09/06/23 13:23 91 H 98 09/06/23 13:18 86 99 09/06/23 13:14 82 142/81 H 09/06/23 13:13 83 97 09/06/23 13:08 89 97 09/06/23 13:03 88 98 09/06/23 13:01 20 09/06/23 13:01 20 09/06/23 13:00 90 140/83 09/06/23 12:58 80 98 09/06/23 12:53 88 98 09/06/23 12:48 83 99 09/06/23 12:44 77 135/89 09/06/23 12:43 83 99 09/06/23 12:38 82 98 09/06/23 12:33 79 97 09/06/23 12:31 20 09/06/23 12:31 20 09/06/23 12:29 79 136/85 09/06/23 12:28 79 97 09/06/23 12:23 80 98 09/06/23 12:18 81 97 09/06/23 12:15 83 134/84 09/06/23 12:13 85 99 09/06/23 12:10 20 09/06/23 12:10 20 09/06/23 12:08 94 H 98 09/06/23 12:03 87 98 09/06/23 11:59 86 137/89 09/06/23 11:58 91 H 98 09/06/23 11:53 88 98 09/06/23 11:48 91 H 97 09/06/23 11:46 86 140/93 09/06/23 11:45 18 09/06/23 11:45 18 09/06/23 11:43 86 98 09/06/23 11:38 87 98 09/06/23 11:33 94 H 98 09/06/23 11:30 18 09/06/23 11:30 18 09/06/23 11:29 86 142/86 H 09/06/23 11:28 88 97 09/06/23 11:23 90 97 09/06/23 11:18 88 98 09/06/23 11:15 18 09/06/23 11:15 18 09/06/23 11:14 83 131/83 09/06/23 11:13 85 96 09/06/23 11:08 88 97 09/06/23 11:03 95 09/06/23 11:03 86 09/06/23 11:03 85 93 09/06/23 10:59 93 H 132/83 09/06/23 10:58 92 H 96 09/06/23 10:53 96 H 96 09/06/23 10:50 37.2 C 09/06/23 10:50 20 09/06/23 10:50 20 09/06/23 10:48 91 H 97 09/06/23 10:44 81 142/87 H 09/06/23 10:43 83 97 09/06/23 10:38 87 96 09/06/23 10:35 20 09/06/23 10:35 20 09/06/23 10:33 84 97 09/06/23 10:29 97 H 142/84 H 09/06/23 10:28 93 H 97 09/06/23 10:23 88 97 09/06/23 10:20 20 01/25/24 10:20 20 09/06/23 10:18 86 99 09/06/23 10:15 84 150/91 H 09/06/23 10:13 92 H 99 09/06/23 10:08 85 99 09/06/23 10:05 20 09/06/23 10:05 20 09/06/23 10:03 81 98 09/06/23 10:00 75 155/86 H 09/06/23 09:58 82 100 09/06/23 09:53 83 98 09/06/23 09:50 20 09/06/23 09:50 20 09/06/23 09:48 86 99 09/06/23 09:44 85 141/82 H 09/06/23 09:43 80 99 09/06/23 09:38 80 98 09/06/23 09:35 20 09/06/23 09:35 20 09/06/23 09:33 82 98 09/06/23 09:29 75 144/78 H 09/06/23 09:28 83 99 09/06/23 09:23 99 09/06/23 09:23 79 09/06/23 09:23 78 153/79 H 09/06/23 09:21 73 152/85 H 09/06/23 09:20 20 09/06/23 09:20 20 09/06/23 09:19 83 149/90 H 09/06/23 09:18 74 98 09/06/23 09:17 80 149/87 H 09/06/23 09:15 80 156/91 H 09/06/23 09:13 87 98 09/06/23 09:08 96 H 100 09/06/23 09:07 86 158/92 H 09/06/23 08:55 93 H 153/95 H 09/06/23 08:42 88 170/90 H 09/06/23 08:40 36.9 C 09/06/23 08:36 78 168/91 H 09/06/23 08:30 168/91 H 09/06/23 08:27 77 154/88 H 09/06/23 08:27 77 154/88 H 09/06/23 08:12 81 168/99 H 09/06/23 07:50 36.7 C 20 01/25/24 07:50 20 09/06/23 07:48 82 170/99 H 09/06/23 06:50 82 18 155/94 H 09/06/23 05:51 16 09/06/23 05:51 36.8 C 16 09/06/23 05:41 89 16 122/82 09/06/23 04:49 88 135/94 09/06/23 04:47 90 171/97 H 09/06/23 04:30 16 09/06/23 04:30 36.8 C 16 Coding Level of Care Code None Diagnoses premature rupture of membranes (PPROM) with unknown onset of labor O42.919 Pre-existing type 2 diabetes mellitus during , antepartum O24.119 Chronic hypertension during O10.919
[2023-09-06] MEDS: fentANYL 2 MCG/ML BUPIVacaine 0.125%-NSS 100ML BAG EPI PRN (18:15)
--- NOTE | 2023-09-06 18:16 | Labor Progress Brief Note ---
Date of Service September 06, 2023 Subjective comfortable Assessment & Plan (1) premature rupture of membranes (PPROM) with unknown onset of labor: (2) Chronic hypertension during : (3) Pre-existing type 2 diabetes mellitus during , antepartum: Plan fetus reassuring category 2 secondary to variables. making change albeit slowly. continue current plan. Admission and Anticipated Discharge Date Admission Date: September 06, 2023 Physical Exam Physical Exam: cx--5+/100/-1 toco--q2-2.5 mins, pit at 17, adequate since 2pm efm--140s with mod variability, +accels and scalp stim, early /variable with some contractions. Results & Data Vital Signs (Past 12 Hours) Vital Signs Temp Pulse Resp BP Pulse Ox 09/06/23 18:08 89 98 09/06/23 18:03 83 96 09/06/23 17:59 81 131/63 09/06/23 17:58 85 97 09/06/23 17:53 88 97 09/06/23 17:48 87 97 09/06/23 17:44 90 121/66 09/06/23 17:43 89 97 09/06/23 17:38 102 H 98 09/06/23 17:33 99 H 98 09/06/23 17:31 20 09/06/23 17:31 20 09/06/23 17:29 93 H 153/87 H 09/06/23 17:28 94 H 96 09/06/23 17:23 90 96 09/06/23 17:18 89 97 09/06/23 17:14 98 H 149/85 H 09/06/23 17:13 90 96 09/06/23 17:10 36.8 C 09/06/23 17:08 92 H 96 09/06/23 17:03 91 H 97 09/06/23 17:01 20 09/06/23 17:01 20 09/06/23 16:59 100 H 142/83 H 09/06/23 16:58 96 H 95 09/06/23 16:53 98 H 97 09/06/23 16:48 103 H 97 09/06/23 16:44 100 H 140/75 09/06/23 16:43 100 H 97 09/06/23 16:38 105 H 96 09/06/23 16:33 103 H 97 09/06/23 16:31 20 09/06/23 16:31 20 09/06/23 16:29 100 H 145/79 H 09/06/23 16:28 106 H 97 09/06/23 16:23 103 H 97 09/06/23 16:18 102 H 97 09/06/23 16:14 98 H 154/86 H 09/06/23 16:13 101 H 98 09/06/23 16:08 98 H 98 09/06/23 16:03 95 H 97 09/06/23 16:01 20 09/06/23 16:01 36.9 C 20 09/06/23 16:00 95 H 153/84 H 09/06/23 15:58 101 H 97 09/06/23 15:53 97 H 97 09/06/23 15:48 101 H 98 09/06/23 15:44 91 H 152/83 H 09/06/23 15:43 94 H 99 09/06/23 15:38 95 H 98 09/06/23 15:33 99 H 97 09/06/23 15:31 20 09/06/23 15:31 20 09/06/23 15:29 97 H 151/93 H 09/06/23 15:28 100 H 97 09/06/23 15:23 100 H 97 09/06/23 15:22 108 H 93 09/06/23 15:18 84 98 09/06/23 15:14 146/98 H 09/06/23 15:13 92 H 98 09/06/23 15:08 87 97 09/06/23 15:05 37.0 C 09/06/23 15:03 86 97 09/06/23 15:01 20 09/06/23 15:01 20 09/06/23 14:59 79 127/64 09/06/23 14:58 82 97 09/06/23 14:53 85 97 09/06/23 14:48 82 97 09/06/23 14:44 79 137/69 09/06/23 14:43 82 97 09/06/23 14:38 84 98 09/06/23 14:33 86 97 09/06/23 14:31 20 09/06/23 14:31 20 09/06/23 14:29 90 138/86 09/06/23 14:28 86 98 09/06/23 14:23 90 97 09/06/23 14:18 87 97 09/06/23 14:14 87 136/84 09/06/23 14:13 88 97 09/06/23 14:08 88 97 09/06/23 14:03 88 96 09/06/23 14:01 20 09/06/23 14:01 20 09/06/23 13:59 86 139/84 09/06/23 13:58 89 97 09/06/23 13:53 87 97 09/06/23 13:48 88 97 09/06/23 13:45 86 148/87 H 09/06/23 13:43 89 98 09/06/23 13:38 89 98 09/06/23 13:33 95 H 98 09/06/23 13:31 20 09/06/23 13:31 20 09/06/23 13:30 84 135/87 09/06/23 13:28 88 97 09/06/23 13:23 91 H 98 09/06/23 13:18 86 99 09/06/23 13:14 82 142/81 H 09/06/23 13:13 83 97 09/06/23 13:10 36.7 C 09/06/23 13:08 89 97 09/06/23 13:03 88 98 09/06/23 13:01 20 09/06/23 13:01 20 09/06/23 13:00 90 140/83 09/06/23 12:58 80 98 09/06/23 12:53 88 98 09/06/23 12:48 83 99 09/06/23 12:44 77 135/89 09/06/23 12:43 83 99 09/06/23 12:38 82 98 09/06/23 12:33 79 97 09/06/23 12:31 20 09/06/23 12:31 20 09/06/23 12:29 79 136/85 09/06/23 12:28 79 97 09/06/23 12:23 80 98 09/06/23 12:18 81 97 09/06/23 12:15 83 134/84 09/06/23 12:13 85 99 09/06/23 12:10 20 09/06/23 12:10 20 09/06/23 12:08 94 H 98 09/06/23 12:03 87 98 09/06/23 11:59 86 137/89 09/06/23 11:58 91 H 98 09/06/23 11:53 88 98 09/06/23 11:48 91 H 97 09/06/23 11:46 86 140/93 09/06/23 11:45 18 09/06/23 11:45 18 09/06/23 11:43 86 98 09/06/23 11:38 87 98 09/06/23 11:33 94 H 98 09/06/23 11:30 18 09/06/23 11:30 18 09/06/23 11:29 86 142/86 H 09/06/23 11:28 88 97 09/06/23 11:23 90 97 09/06/23 11:18 88 98 09/06/23 11:15 18 09/06/23 11:15 18 09/06/23 11:14 83 131/83 09/06/23 11:13 85 96 09/06/23 11:08 88 97 09/06/23 11:03 95 09/06/23 11:03 86 09/06/23 11:03 85 93 09/06/23 10:59 93 H 132/83 09/06/23 10:58 92 H 96 09/06/23 10:53 96 H 96 09/06/23 10:50 37.2 C 09/06/23 10:50 20 09/06/23 10:50 20 09/06/23 10:48 91 H 97 09/06/23 10:44 81 142/87 H 09/06/23 10:43 83 97 09/06/23 10:38 87 96 09/06/23 10:35 20 09/06/23 10:35 20 09/06/23 10:33 84 97 09/06/23 10:29 97 H 142/84 H 09/06/23 10:28 93 H 97 09/06/23 10:23 88 97 09/06/23 10:20 20 09/06/23 10:20 20 09/06/23 10:18 86 99 09/06/23 10:15 84 150/91 H 09/06/23 10:13 92 H 99 09/06/23 10:08 85 99 09/06/23 10:05 20 09/06/23 10:05 20 09/06/23 10:03 81 98 09/06/23 10:00 75 155/86 H 09/06/23 09:58 82 100 09/06/23 09:53 83 98 09/06/23 09:50 20 09/06/23 09:50 20 09/06/23 09:48 86 99 09/06/23 09:44 85 141/82 H 09/06/23 09:43 80 99 09/06/23 09:38 80 98 09/06/23 09:35 20 09/06/23 09:35 20 09/06/23 09:33 82 98 09/06/23 09:29 75 144/78 H 09/06/23 09:28 83 99 09/06/23 09:23 99 09/06/23 09:23 79 09/06/23 09:23 78 153/79 H 09/06/23 09:21 73 152/85 H 09/06/23 09:20 20 09/06/23 09:20 20 09/06/23 09:19 83 149/90 H 09/06/23 09:18 74 98 09/06/23 09:17 80 149/87 H 09/06/23 09:15 80 156/91 H 09/06/23 09:13 87 98 09/06/23 09:08 96 H 100 09/06/23 09:07 86 158/92 H 09/06/23 08:55 93 H 153/95 H 09/06/23 08:42 88 170/90 H 09/06/23 08:40 36.9 C 09/06/23 08:36 78 168/91 H 09/06/23 08:30 168/91 H 09/06/23 08:27 77 154/88 H 09/06/23 08:27 77 154/88 H 09/06/23 08:12 81 168/99 H 09/06/23 07:50 36.7 C 20 09/06/23 07:50 20 09/06/23 07:48 82 170/99 H 09/06/23 06:50 82 18 155/94 H Coding Level of Care Code None Diagnoses premature rupture of membranes (PPROM) with unknown onset of labor O42.919 Chronic hypertension during O10.919 Pre-existing type 2 diabetes mellitus during , antepartum O24.119
--- NOTE | 2023-09-06 20:11 | Labor Progress Brief Note ---
Date of Service September 06, 2023 Subjective comfortable Assessment & Plan (1) premature rupture of membranes (PPROM) with unknown onset of labor: (2) Chronic hypertension during : (3) Pre-existing type 2 diabetes mellitus during , antepartum: Plan continues to make very slow change. fetus overall category one. mvus are adequate. Concerned a bit as not making better change, but changing nonetheless. Continue current management. Admission and Anticipated Discharge Date Admission Date: September 06, 2023 Physical Exam Physical Exam: cx--6/100/-1 toco--q2-3 min, pit at 17, good mvus efm--140s with mod variability, spon accels and scalp stim, early wtih some contractions Results & Data Vital Signs (Past 12 Hours) Vital Signs Temp Pulse Resp BP Pulse Ox 09/06/23 20:08 92 H 97 09/06/23 20:03 87 97 09/06/23 20:00 83 132/72 09/06/23 19:58 89 97 09/06/23 19:53 81 96 09/06/23 19:48 85 97 09/06/23 19:44 88 118/66 09/06/23 19:43 88 96 09/06/23 19:38 91 H 97 09/06/23 19:33 95 H 98 09/06/23 19:29 88 150/80 H 09/06/23 19:28 36.8 C 18 09/06/23 19:28 18 09/06/23 19:28 93 H 97 09/06/23 19:23 85 97 09/06/23 19:18 84 98 09/06/23 19:15 85 146/78 H 09/06/23 19:13 87 97 09/06/23 19:08 81 97 09/06/23 19:03 86 97 09/06/23 19:01 20 09/06/23 19:01 20 09/06/23 18:59 82 137/69 09/06/23 18:58 83 96 09/06/23 18:53 83 98 09/06/23 18:48 85 97 09/06/23 18:44 77 131/68 09/06/23 18:43 81 97 09/06/23 18:38 81 97 09/06/23 18:33 87 98 09/06/23 18:29 85 129/72 09/06/23 18:28 84 97 09/06/23 18:23 89 97 09/06/23 18:18 87 97 09/06/23 18:14 85 129/70 09/06/23 18:13 89 96 09/06/23 18:08 89 98 09/06/23 18:03 83 96 09/06/23 18:01 20 09/06/23 18:01 20 09/06/23 17:59 81 131/63 09/06/23 17:58 85 97 09/06/23 17:53 88 97 09/06/23 17:48 87 97 09/06/23 17:44 90 121/66 09/06/23 17:43 89 97 09/06/23 17:38 102 H 98 09/06/23 17:33 99 H 98 09/06/23 17:31 20 09/06/23 17:31 20 09/06/23 17:29 93 H 153/87 H 09/06/23 17:28 94 H 96 09/06/23 17:23 90 96 09/06/23 17:18 89 97 09/06/23 17:14 98 H 149/85 H 09/06/23 17:13 90 96 09/06/23 17:10 36.8 C 09/06/23 17:08 92 H 96 09/06/23 17:03 91 H 97 09/06/23 17:01 20 09/06/23 17:01 20 09/06/23 16:59 100 H 142/83 H 09/06/23 16:58 96 H 95 09/06/23 16:53 98 H 97 09/06/23 16:48 103 H 97 09/06/23 16:44 100 H 140/75 09/06/23 16:43 100 H 97 09/06/23 16:38 105 H 96 09/06/23 16:33 103 H 97 09/06/23 16:31 20 09/06/23 16:31 20 09/06/23 16:29 100 H 145/79 H 09/06/23 16:28 106 H 97 09/06/23 16:23 103 H 97 09/06/23 16:18 102 H 97 09/06/23 16:14 98 H 154/86 H 09/06/23 16:13 101 H 98 09/06/23 16:08 98 H 98 09/06/23 16:03 95 H 97 09/06/23 16:01 20 09/06/23 16:01 36.9 C 20 09/06/23 16:00 95 H 153/84 H 09/06/23 15:58 101 H 97 09/06/23 15:53 97 H 97 09/06/23 15:48 101 H 98 09/06/23 15:44 91 H 152/83 H 09/06/23 15:43 94 H 99 09/06/23 15:38 95 H 98 09/06/23 15:33 99 H 97 09/06/23 15:31 20 09/06/23 15:31 20 09/06/23 15:29 97 H 151/93 H 09/06/23 15:28 100 H 97 09/06/23 15:23 100 H 97 09/06/23 15:22 108 H 93 09/06/23 15:18 84 98 09/06/23 15:14 146/98 H 09/06/23 15:13 92 H 98 09/06/23 15:08 87 97 09/06/23 15:05 37.0 C 09/06/23 15:03 86 97 09/06/23 15:01 20 09/06/23 15:01 20 09/06/23 14:59 79 127/64 09/06/23 14:58 82 97 09/06/23 14:53 85 97 09/06/23 14:48 82 97 09/06/23 14:44 79 137/69 09/06/23 14:43 82 97 09/06/23 14:38 84 98 09/06/23 14:33 86 97 09/06/23 14:31 20 09/06/23 14:31 20 09/06/23 14:29 90 138/86 09/06/23 14:28 86 98 09/06/23 14:23 90 97 09/06/23 14:18 87 97 09/06/23 14:14 87 136/84 09/06/23 14:13 88 97 09/06/23 14:08 88 97 09/06/23 14:03 88 96 09/06/23 14:01 20 09/06/23 14:01 20 09/06/23 13:59 86 139/84 09/06/23 13:58 89 97 09/06/23 13:53 87 97 09/06/23 13:48 88 97 09/06/23 13:45 86 148/87 H 09/06/23 13:43 89 98 09/06/23 13:38 89 98 09/06/23 13:33 95 H 98 09/06/23 13:31 20 09/06/23 13:31 20 09/06/23 13:30 84 135/87 09/06/23 13:28 88 97 09/06/23 13:23 91 H 98 09/06/23 13:18 86 99 09/06/23 13:14 82 142/81 H 09/06/23 13:13 83 97 09/06/23 13:10 36.7 C 09/06/23 13:08 89 97 09/06/23 13:03 88 98 09/06/23 13:01 20 09/06/23 13:01 20 09/06/23 13:00 90 140/83 09/06/23 12:58 80 98 09/06/23 12:53 88 98 09/06/23 12:48 83 99 09/06/23 12:44 77 135/89 09/06/23 12:43 83 99 09/06/23 12:38 82 98 09/06/23 12:33 79 97 09/06/23 12:31 20 09/06/23 12:31 20 09/06/23 12:29 79 136/85 09/06/23 12:28 79 97 09/06/23 12:23 80 98 09/06/23 12:18 81 97 09/06/23 12:15 83 134/84 09/06/23 12:13 85 99 09/06/23 12:10 20 09/06/23 12:10 20 09/06/23 12:08 94 H 98 09/06/23 12:03 87 98 09/06/23 11:59 86 137/89 09/06/23 11:58 91 H 98 09/06/23 11:53 88 98 09/06/23 11:48 91 H 97 09/06/23 11:46 86 140/93 09/06/23 11:45 18 09/06/23 11:45 18 09/06/23 11:43 86 98 09/06/23 11:38 87 98 09/06/23 11:33 94 H 98 09/06/23 11:30 18 09/06/23 11:30 18 09/06/23 11:29 86 142/86 H 09/06/23 11:28 88 97 09/06/23 11:23 90 97 09/06/23 11:18 88 98 09/06/23 11:15 18 09/06/23 11:15 18 09/06/23 11:14 83 131/83 09/06/23 11:13 85 96 09/06/23 11:08 88 97 09/06/23 11:03 95 09/06/23 11:03 86 09/06/23 11:03 85 93 09/06/23 10:59 93 H 132/83 09/06/23 10:58 92 H 96 09/06/23 10:53 96 H 96 09/06/23 10:50 37.2 C 09/06/23 10:50 20 09/06/23 10:50 20 09/06/23 10:48 91 H 97 09/06/23 10:44 81 142/87 H 09/06/23 10:43 83 97 09/06/23 10:38 87 96 09/06/23 10:35 20 09/06/23 10:35 20 09/06/23 10:33 84 97 09/06/23 10:29 97 H 142/84 H 09/06/23 10:28 93 H 97 09/06/23 10:23 88 97 09/06/23 10:20 20 09/06/23 10:20 20 09/06/23 10:18 86 99 09/06/23 10:15 84 150/91 H 09/06/23 10:13 92 H 99 09/06/23 10:08 85 99 09/06/23 10:05 20 09/06/23 10:05 20 09/06/23 10:03 81 98 09/06/23 10:00 75 155/86 H 09/06/23 09:58 82 100 09/06/23 09:53 83 98 09/06/23 09:50 20 09/06/23 09:50 20 09/06/23 09:48 86 99 09/06/23 09:44 85 141/82 H 09/06/23 09:43 80 99 09/06/23 09:38 80 98 09/06/23 09:35 20 09/06/23 09:35 20 09/06/23 09:33 82 98 09/06/23 09:29 75 144/78 H 09/06/23 09:28 83 99 09/06/23 09:23 99 09/06/23 09:23 79 09/06/23 09:23 78 153/79 H 09/06/23 09:21 73 152/85 H 09/06/23 09:20 20 09/06/23 09:20 20 09/06/23 09:19 83 149/90 H 09/06/23 09:18 74 98 09/06/23 09:17 80 149/87 H 09/06/23 09:15 80 156/91 H 09/06/23 09:13 87 98 09/06/23 09:08 96 H 100 09/06/23 09:07 86 158/92 H 09/06/23 08:55 93 H 153/95 H 09/06/23 08:42 88 170/90 H 09/06/23 08:40 36.9 C 09/06/23 08:36 78 168/91 H 09/06/23 08:30 168/91 H 09/06/23 08:27 77 154/88 H 09/06/23 08:27 77 154/88 H 09/06/23 08:12 81 168/99 H Coding Level of Care Code None Diagnoses premature rupture of membranes (PPROM) with unknown onset of labor O42.919 Chronic hypertension during O10.919 Pre-existing type 2 diabetes mellitus during , antepartum O24.119
--- NOTE | 2023-09-06 22:04 | Labor Progress Brief Note ---
Date of Service September 06, 2023 Subjective comfortable, napping Assessment & Plan (1) premature rupture of membranes (PPROM) with unknown onset of labor: Plan continue current management. continues to make slow but positive change. Fetus very reassuring mostly category one, but has occasional variables to category two. Sugars controlled. Bps wnl. Admission and Anticipated Discharge Date Admission Date: September 06, 2023 Physical Exam Physical Exam: cx--7/100/-1 toco--q2-3min, pit at 19mvus adequate efm--130s with mod variability, spon accels to 170s, occasional early variables, +scalp stim Results & Data Vital Signs (Past 12 Hours) Vital Signs Temp Pulse Resp BP Pulse Ox 09/06/23 21:58 87 96 09/06/23 21:53 88 96 09/06/23 21:48 80 95 09/06/23 21:44 75 135/64 09/06/23 21:43 80 96 09/06/23 21:38 82 95 09/06/23 21:33 81 97 09/06/23 21:30 36.8 C 80 16 146/75 H 09/06/23 21:28 83 97 09/06/23 21:23 79 96 09/06/23 21:18 81 97 09/06/23 21:14 80 150/84 H 09/06/23 21:13 79 97 09/06/23 21:08 87 97 09/06/23 21:03 87 97 09/06/23 21:00 18 09/06/23 21:00 18 09/06/23 20:59 84 143/79 H 09/06/23 20:58 85 97 09/06/23 20:53 85 96 09/06/23 20:48 85 98 09/06/23 20:44 82 133/74 09/06/23 20:43 83 96 09/06/23 20:38 89 97 09/06/23 20:33 88 96 09/06/23 20:30 87 20 130/80 94 09/06/23 20:28 97 H 95 09/06/23 20:23 98 H 97 09/06/23 20:18 86 96 09/06/23 20:14 86 149/86 H 09/06/23 20:13 86 97 09/06/23 20:08 92 H 97 09/06/23 20:03 87 97 09/06/23 20:00 83 18 132/72 09/06/23 19:58 89 97 09/06/23 19:53 81 96 09/06/23 19:48 85 97 09/06/23 19:44 88 118/66 09/06/23 19:43 88 96 09/06/23 19:38 91 H 97 09/06/23 19:33 95 H 98 09/06/23 19:29 88 150/80 H 09/06/23 19:28 36.8 C 18 09/06/23 19:28 18 09/06/23 19:28 93 H 97 09/06/23 19:23 85 97 09/06/23 19:18 84 98 09/06/23 19:15 85 146/78 H 09/06/23 19:13 87 97 09/06/23 19:08 81 97 09/06/23 19:03 86 97 09/06/23 19:01 20 09/06/23 19:01 20 09/06/23 18:59 82 137/69 09/06/23 18:58 83 96 09/06/23 18:53 83 98 09/06/23 18:48 85 97 09/06/23 18:44 77 131/68 09/06/23 18:43 81 97 09/06/23 18:38 81 97 09/06/23 18:33 87 98 09/06/23 18:29 85 129/72 09/06/23 18:28 84 97 09/06/23 18:23 89 97 09/06/23 18:18 87 97 09/06/23 18:14 85 129/70 09/06/23 18:13 89 96 09/06/23 18:08 89 98 09/06/23 18:03 83 96 09/06/23 18:01 20 09/06/23 18:01 20 09/06/23 17:59 81 131/63 09/06/23 17:58 85 97 09/06/23 17:53 88 97 09/06/23 17:48 87 97 09/06/23 17:44 90 121/66 09/06/23 17:43 89 97 09/06/23 17:38 102 H 98 09/06/23 17:33 99 H 98 09/06/23 17:31 20 09/06/23 17:31 20 09/06/23 17:29 93 H 153/87 H 09/06/23 17:28 94 H 96 09/06/23 17:23 90 96 09/06/23 17:18 89 97 09/06/23 17:14 98 H 149/85 H 09/06/23 17:13 90 96 09/06/23 17:10 36.8 C 09/06/23 17:08 92 H 96 09/06/23 17:03 91 H 97 09/06/23 17:01 20 09/06/23 17:01 20 09/06/23 16:59 100 H 142/83 H 09/06/23 16:58 96 H 95 09/06/23 16:53 98 H 97 09/06/23 16:48 103 H 97 09/06/23 16:44 100 H 140/75 09/06/23 16:43 100 H 97 09/06/23 16:38 105 H 96 09/06/23 16:33 103 H 97 09/06/23 16:31 20 09/06/23 16:31 20 09/06/23 16:29 100 H 145/79 H 09/06/23 16:28 106 H 97 09/06/23 16:23 103 H 97 09/06/23 16:18 102 H 97 09/06/23 16:14 98 H 154/86 H 09/06/23 16:13 101 H 98 09/06/23 16:08 98 H 98 09/06/23 16:03 95 H 97 09/06/23 16:01 20 09/06/23 16:01 36.9 C 20 09/06/23 16:00 95 H 153/84 H 09/06/23 15:58 101 H 97 09/06/23 15:53 97 H 97 09/06/23 15:48 101 H 98 09/06/23 15:44 91 H 152/83 H 09/06/23 15:43 94 H 99 09/06/23 15:38 95 H 98 09/06/23 15:33 99 H 97 09/06/23 15:31 20 09/06/23 15:31 20 09/06/23 15:29 97 H 151/93 H 09/06/23 15:28 100 H 97 09/06/23 15:23 100 H 97 09/06/23 15:22 108 H 93 09/06/23 15:18 84 98 09/06/23 15:14 146/98 H 09/06/23 15:13 92 H 98 09/06/23 15:08 87 97 09/06/23 15:05 37.0 C 09/06/23 15:03 86 97 09/06/23 15:01 20 09/06/23 15:01 20 09/06/23 14:59 79 127/64 09/06/23 14:58 82 97 09/06/23 14:53 85 97 09/06/23 14:48 82 97 09/06/23 14:44 79 137/69 09/06/23 14:43 82 97 09/06/23 14:38 84 98 09/06/23 14:33 86 97 09/06/23 14:31 20 09/06/23 14:31 20 09/06/23 14:29 90 138/86 09/06/23 14:28 86 98 09/06/23 14:23 90 97 09/06/23 14:18 87 97 09/06/23 14:14 87 136/84 09/06/23 14:13 88 97 09/06/23 14:08 88 97 09/06/23 14:03 88 96 09/06/23 14:01 20 09/06/23 14:01 20 09/06/23 13:59 86 139/84 09/06/23 13:58 89 97 09/06/23 13:53 87 97 09/06/23 13:48 88 97 09/06/23 13:45 86 148/87 H 09/06/23 13:43 89 98 09/06/23 13:38 89 98 09/06/23 13:33 95 H 98 09/06/23 13:31 20 09/06/23 13:31 20 09/06/23 13:30 84 135/87 09/06/23 13:28 88 97 09/06/23 13:23 91 H 98 09/06/23 13:18 86 99 09/06/23 13:14 82 142/81 H 09/06/23 13:13 83 97 09/06/23 13:10 36.7 C 09/06/23 13:08 89 97 09/06/23 13:03 88 98 09/06/23 13:01 20 09/06/23 13:01 20 09/06/23 13:00 90 140/83 09/06/23 12:58 80 98 09/06/23 12:53 88 98 09/06/23 12:48 83 99 09/06/23 12:44 77 135/89 09/06/23 12:43 83 99 09/06/23 12:38 82 98 09/06/23 12:33 79 97 09/06/23 12:31 20 09/06/23 12:31 20 09/06/23 12:29 79 136/85 09/06/23 12:28 79 97 09/06/23 12:23 80 98 09/06/23 12:18 81 97 09/06/23 12:15 83 134/84 09/06/23 12:13 85 99 09/06/23 12:10 20 09/06/23 12:10 20 09/06/23 12:08 94 H 98 09/06/23 12:03 87 98 09/06/23 11:59 86 137/89 09/06/23 11:58 91 H 98 09/06/23 11:53 88 98 09/06/23 11:48 91 H 97 09/06/23 11:46 86 140/93 09/06/23 11:45 18 09/06/23 11:45 18 09/06/23 11:43 86 98 09/06/23 11:38 87 98 09/06/23 11:33 94 H 98 09/06/23 11:30 18 09/06/23 11:30 18 09/06/23 11:29 86 142/86 H 09/06/23 11:28 88 97 09/06/23 11:23 90 97 09/06/23 11:18 88 98 09/06/23 11:15 18 09/06/23 11:15 18 09/06/23 11:14 83 131/83 09/06/23 11:13 85 96 09/06/23 11:08 88 97 09/06/23 11:03 95 09/06/23 11:03 86 09/06/23 11:03 85 93 09/06/23 10:59 93 H 132/83 09/06/23 10:58 92 H 96 09/06/23 10:53 96 H 96 09/06/23 10:50 37.2 C 09/06/23 10:50 20 09/06/23 10:50 20 09/06/23 10:48 91 H 97 09/06/23 10:44 81 142/87 H 09/06/23 10:43 83 97 09/06/23 10:38 87 96 09/06/23 10:35 20 09/06/23 10:35 20 09/06/23 10:33 84 97 09/06/23 10:29 97 H 142/84 H 09/06/23 10:28 93 H 97 09/06/23 10:23 88 97 09/06/23 10:20 20 09/06/23 10:20 20 09/06/23 10:18 86 99 09/06/23 10:15 84 150/91 H 09/06/23 10:13 92 H 99 09/06/23 10:08 85 99 09/06/23 10:05 20 09/06/23 10:05 20 09/06/23 10:03 81 98 Coding Level of Care Code None Diagnoses premature rupture of membranes (PPROM) with unknown onset of labor O42.919
--- NOTE | 2023-09-07 00:31 | Labor Progress Brief Note ---
Date of Service September 07, 2023 Subjective feeling alot of rectal pressure Assessment & Plan (1) premature rupture of membranes (PPROM) with unknown onset of labor: Plan Great change. Lots of molding and feels like is going to be a really tight fit. Fetus overall reassuring, category two from variables Admission and Anticipated Discharge Date Admission Date: September 06, 2023 Physical Exam Physical Exam: cx--9/c/0 toco--q 2-3, iupc not picking up well at this point, but made great change efm--130s with mod variability, +accels, +scal stim, variables noted. Results & Data Vital Signs (Past 12 Hours) Vital Signs Temp Pulse Resp BP Pulse Ox 09/07/23 00:23 85 97 09/07/23 00:18 95 H 97 09/07/23 00:15 83 148/83 H 09/07/23 00:13 80 97 09/07/23 00:08 91 H 96 09/07/23 00:03 83 96 09/07/23 00:00 91 H 94 09/06/23 23:59 87 144/77 H 09/06/23 23:58 87 96 09/06/23 23:53 95 H 95 09/06/23 23:48 80 97 09/06/23 23:45 78 147/77 H 09/06/23 23:43 85 97 09/06/23 23:38 84 97 09/06/23 23:33 86 98 09/06/23 23:30 36.9 C 90 18 132/75 09/06/23 23:28 92 H 97 09/06/23 23:23 80 96 09/06/23 23:18 79 96 09/06/23 23:14 74 135/67 09/06/23 23:13 80 96 09/06/23 23:08 80 97 09/06/23 23:03 82 98 09/06/23 23:00 16 09/06/23 23:00 16 09/06/23 22:59 75 138/70 09/06/23 22:58 78 96 09/06/23 22:53 86 97 09/06/23 22:48 91 H 97 09/06/23 22:45 88 144/87 H 09/06/23 22:43 94 H 96 09/06/23 22:38 93 H 97 09/06/23 22:33 86 97 09/06/23 22:30 20 09/06/23 22:30 20 09/06/23 22:29 79 147/76 H 09/06/23 22:28 83 95 09/06/23 22:27 82 94 09/06/23 22:23 87 94 09/06/23 22:21 84 94 09/06/23 22:18 86 95 09/06/23 22:14 81 147/78 H 09/06/23 22:13 82 95 09/06/23 22:08 85 95 09/06/23 22:03 83 96 09/06/23 22:00 86 18 156/89 H 09/06/23 21:58 87 96 09/06/23 21:53 88 96 09/06/23 21:48 80 95 09/06/23 21:44 75 135/64 09/06/23 21:43 80 96 09/06/23 21:38 82 95 09/06/23 21:33 81 97 09/06/23 21:30 36.8 C 80 16 146/75 H 09/06/23 21:28 83 97 09/06/23 21:23 79 96 09/06/23 21:18 81 97 09/06/23 21:14 80 150/84 H 09/06/23 21:13 79 97 09/06/23 21:08 87 97 09/06/23 21:03 87 97 09/06/23 21:00 18 09/06/23 21:00 18 09/06/23 20:59 84 143/79 H 09/06/23 20:58 85 97 09/06/23 20:53 85 96 09/06/23 20:48 85 98 09/06/23 20:44 82 133/74 09/06/23 20:43 83 96 09/06/23 20:38 89 97 09/06/23 20:33 88 96 09/06/23 20:30 87 20 130/80 94 09/06/23 20:28 97 H 95 09/06/23 20:23 98 H 97 09/06/23 20:18 86 96 09/06/23 20:14 86 149/86 H 09/06/23 20:13 86 97 09/06/23 20:08 92 H 97 09/06/23 20:03 87 97 01/25/24 20:00 83 18 132/72 09/06/23 19:58 89 97 09/06/23 19:53 81 96 09/06/23 19:48 85 97 09/06/23 19:44 88 118/66 09/06/23 19:43 88 96 09/06/23 19:38 91 H 97 09/06/23 19:33 95 H 98 09/06/23 19:29 88 150/80 H 09/06/23 19:28 36.8 C 18 09/06/23 19:28 18 09/06/23 19:28 93 H 97 09/06/23 19:23 85 97 09/06/23 19:18 84 98 09/06/23 19:15 85 146/78 H 09/06/23 19:13 87 97 09/06/23 19:08 81 97 09/06/23 19:03 86 97 09/06/23 19:01 20 09/06/23 19:01 20 09/06/23 18:59 82 137/69 09/06/23 18:58 83 96 09/06/23 18:53 83 98 09/06/23 18:48 85 97 09/06/23 18:44 77 131/68 09/06/23 18:43 81 97 09/06/23 18:38 81 97 09/06/23 18:33 87 98 09/06/23 18:29 85 129/72 09/06/23 18:28 84 97 09/06/23 18:23 89 97 09/06/23 18:18 87 97 09/06/23 18:14 85 129/70 09/06/23 18:13 89 96 09/06/23 18:08 89 98 09/06/23 18:03 83 96 09/06/23 18:01 20 09/06/23 18:01 20 09/06/23 17:59 81 131/63 09/06/23 17:58 85 97 09/06/23 17:53 88 97 09/06/23 17:48 87 97 09/06/23 17:44 90 121/66 09/06/23 17:43 89 97 09/06/23 17:38 102 H 98 09/06/23 17:33 99 H 98 09/06/23 17:31 20 09/06/23 17:31 20 09/06/23 17:29 93 H 153/87 H 09/06/23 17:28 94 H 96 09/06/23 17:23 90 96 09/06/23 17:18 89 97 09/06/23 17:14 98 H 149/85 H 09/06/23 17:13 90 96 09/06/23 17:10 36.8 C 09/06/23 17:08 92 H 96 09/06/23 17:03 91 H 97 09/06/23 17:01 20 09/06/23 17:01 20 09/06/23 16:59 100 H 142/83 H 09/06/23 16:58 96 H 95 09/06/23 16:53 98 H 97 09/06/23 16:48 103 H 97 09/06/23 16:44 100 H 140/75 09/06/23 16:43 100 H 97 09/06/23 16:38 105 H 96 09/06/23 16:33 103 H 97 09/06/23 16:31 20 09/06/23 16:31 20 09/06/23 16:29 100 H 145/79 H 09/06/23 16:28 106 H 97 09/06/23 16:23 103 H 97 09/06/23 16:18 102 H 97 09/06/23 16:14 98 H 154/86 H 09/06/23 16:13 101 H 98 09/06/23 16:08 98 H 98 09/06/23 16:03 95 H 97 09/06/23 16:01 20 09/06/23 16:01 36.9 C 20 09/06/23 16:00 95 H 153/84 H 09/06/23 15:58 101 H 97 09/06/23 15:53 97 H 97 09/06/23 15:48 101 H 98 09/06/23 15:44 91 H 152/83 H 09/06/23 15:43 94 H 99 09/06/23 15:38 95 H 98 09/06/23 15:33 99 H 97 09/06/23 15:31 20 09/06/23 15:31 20 09/06/23 15:29 97 H 151/93 H 09/06/23 15:28 100 H 97 09/06/23 15:23 100 H 97 09/06/23 15:22 108 H 93 09/06/23 15:18 84 98 09/06/23 15:14 146/98 H 09/06/23 15:13 92 H 98 09/06/23 15:08 87 97 09/06/23 15:05 37.0 C 09/06/23 15:03 86 97 09/06/23 15:01 20 09/06/23 15:01 20 09/06/23 14:59 79 127/64 09/06/23 14:58 82 97 09/06/23 14:53 85 97 09/06/23 14:48 82 97 09/06/23 14:44 79 137/69 09/06/23 14:43 82 97 09/06/23 14:38 84 98 09/06/23 14:33 86 97 09/06/23 14:31 20 09/06/23 14:31 20 09/06/23 14:29 90 138/86 09/06/23 14:28 86 98 09/06/23 14:23 90 97 09/06/23 14:18 87 97 09/06/23 14:14 87 136/84 09/06/23 14:13 88 97 09/06/23 14:08 88 97 09/06/23 14:03 88 96 09/06/23 14:01 20 09/06/23 14:01 20 09/06/23 13:59 86 139/84 09/06/23 13:58 89 97 09/06/23 13:53 87 97 09/06/23 13:48 88 97 09/06/23 13:45 86 148/87 H 09/06/23 13:43 89 98 09/06/23 13:38 89 98 09/06/23 13:33 95 H 98 09/06/23 13:31 20 09/06/23 13:31 20 09/06/23 13:30 84 135/87 09/06/23 13:28 88 97 09/06/23 13:23 91 H 98 09/06/23 13:18 86 99 09/06/23 13:14 82 142/81 H 09/06/23 13:13 83 97 09/06/23 13:10 36.7 C 09/06/23 13:08 89 97 09/06/23 13:03 88 98 01/25/24 13:01 20 09/06/23 13:01 20 09/06/23 13:00 90 140/83 09/06/23 12:58 80 98 09/06/23 12:53 88 98 09/06/23 12:48 83 99 09/06/23 12:44 77 135/89 09/06/23 12:43 83 99 09/06/23 12:38 82 98 09/06/23 12:33 79 97 09/06/23 12:31 20 09/06/23 12:31 20 09/06/23 12:29 79 136/85 Coding Level of Care Code None Diagnoses premature rupture of membranes (PPROM) with unknown onset of labor O42.919
--- NOTE | 2023-09-07 01:44 | Labor Progress Brief Note ---
Date of Service September 07, 2023 Subjective pressure Assessment & Plan (1) premature rupture of membranes (PPROM) with unknown onset of labor: Plan concern about still 9cm and not fitting through pelvis. fetus still tolerating things well and overall reassuring. recheck in one hour. Admission and Anticipated Discharge Date Admission Date: September 06, 2023 Physical Exam Physical Exam: cx--unchanged, still rim of cervix all the way around/0 toco--q2-3min, pit at 29 efm--130s with mod variability, variables with contractions Results & Data Vital Signs (Past 12 Hours) Vital Signs Temp Pulse Resp BP Pulse Ox 09/07/23 01:38 84 96 09/07/23 01:33 83 96 09/07/23 01:29 77 144/75 H 09/07/23 01:28 83 97 09/07/23 01:23 78 96 09/07/23 01:18 81 97 09/07/23 01:15 76 143/75 H 09/07/23 01:13 81 96 09/07/23 01:08 82 97 09/07/23 01:03 83 97 09/07/23 01:00 16 09/07/23 01:00 16 09/07/23 00:59 75 155/81 H 09/07/23 00:58 79 95 09/07/23 00:54 80 94 09/07/23 00:53 78 97 09/07/23 00:48 83 96 09/07/23 00:44 85 151/85 H 09/07/23 00:43 82 96 09/07/23 00:38 87 98 09/07/23 00:33 87 96 09/07/23 00:30 81 18 148/81 H 09/07/23 00:28 84 97 09/07/23 00:23 85 97 09/07/23 00:18 95 H 97 09/07/23 00:15 83 148/83 H 09/07/23 00:13 80 97 09/07/23 00:08 91 H 96 09/07/23 00:03 83 96 09/07/23 00:00 91 H 18 94 09/06/23 23:59 87 144/77 H 09/06/23 23:58 87 96 09/06/23 23:53 95 H 95 09/06/23 23:48 80 97 09/06/23 23:45 78 147/77 H 09/06/23 23:43 85 97 09/06/23 23:38 84 97 09/06/23 23:33 86 98 09/06/23 23:30 36.9 C 90 18 132/75 09/06/23 23:28 92 H 97 09/06/23 23:23 80 96 09/06/23 23:18 79 96 09/06/23 23:14 74 135/67 09/06/23 23:13 80 96 09/06/23 23:08 80 97 09/06/23 23:03 82 98 09/06/23 23:00 16 09/06/23 23:00 16 09/06/23 22:59 75 138/70 09/06/23 22:58 78 96 09/06/23 22:53 86 97 09/06/23 22:48 91 H 97 09/06/23 22:45 88 144/87 H 09/06/23 22:43 94 H 96 09/06/23 22:38 93 H 97 09/06/23 22:33 86 97 09/06/23 22:30 20 09/06/23 22:30 20 09/06/23 22:29 79 147/76 H 09/06/23 22:28 83 95 09/06/23 22:27 82 94 09/06/23 22:23 87 94 09/06/23 22:21 84 94 09/06/23 22:18 86 95 09/06/23 22:14 81 147/78 H 09/06/23 22:13 82 95 09/06/23 22:08 85 95 09/06/23 22:03 83 96 09/06/23 22:00 86 18 156/89 H 09/06/23 21:58 87 96 09/06/23 21:53 88 96 09/06/23 21:48 80 95 09/06/23 21:44 75 135/64 09/06/23 21:43 80 96 09/06/23 21:38 82 95 09/06/23 21:33 81 97 09/06/23 21:30 36.8 C 80 16 146/75 H 09/06/23 21:28 83 97 09/06/23 21:23 79 96 09/06/23 21:18 81 97 09/06/23 21:14 80 150/84 H 09/06/23 21:13 79 97 09/06/23 21:08 87 97 09/06/23 21:03 87 97 09/06/23 21:00 18 09/06/23 21:00 18 09/06/23 20:59 84 143/79 H 09/06/23 20:58 85 97 09/06/23 20:53 85 96 09/06/23 20:48 85 98 09/06/23 20:44 82 133/74 09/06/23 20:43 83 96 09/06/23 20:38 89 97 09/06/23 20:33 88 96 09/06/23 20:30 87 20 130/80 94 09/06/23 20:28 97 H 95 09/06/23 20:23 98 H 97 09/06/23 20:18 86 96 09/06/23 20:14 86 149/86 H 09/06/23 20:13 86 97 09/06/23 20:08 92 H 97 09/06/23 20:03 87 97 09/06/23 20:00 83 18 132/72 09/06/23 19:58 89 97 09/06/23 19:53 81 96 09/06/23 19:48 85 97 09/06/23 19:44 88 118/66 09/06/23 19:43 88 96 09/06/23 19:38 91 H 97 09/06/23 19:33 95 H 98 09/06/23 19:29 88 150/80 H 09/06/23 19:28 36.8 C 18 09/06/23 19:28 18 09/06/23 19:28 93 H 97 09/06/23 19:23 85 97 09/06/23 19:18 84 98 09/06/23 19:15 85 146/78 H 09/06/23 19:13 87 97 09/06/23 19:08 81 97 09/06/23 19:03 86 97 09/06/23 19:01 20 09/06/23 19:01 20 09/06/23 18:59 82 137/69 09/06/23 18:58 83 96 09/06/23 18:53 83 98 09/06/23 18:48 85 97 09/06/23 18:44 77 131/68 09/06/23 18:43 81 97 09/06/23 18:38 81 97 09/06/23 18:33 87 98 09/06/23 18:29 85 129/72 09/06/23 18:28 84 97 09/06/23 18:23 89 97 09/06/23 18:18 87 97 09/06/23 18:14 85 129/70 09/06/23 18:13 89 96 09/06/23 18:08 89 98 09/06/23 18:03 83 96 09/06/23 18:01 20 09/06/23 18:01 20 09/06/23 17:59 81 131/63 09/06/23 17:58 85 97 09/06/23 17:53 88 97 09/06/23 17:48 87 97 09/06/23 17:44 90 121/66 09/06/23 17:43 89 97 09/06/23 17:38 102 H 98 09/06/23 17:33 99 H 98 09/06/23 17:31 20 09/06/23 17:31 20 09/06/23 17:29 93 H 153/87 H 09/06/23 17:28 94 H 96 09/06/23 17:23 90 96 09/06/23 17:18 89 97 09/06/23 17:14 98 H 149/85 H 09/06/23 17:13 90 96 09/06/23 17:10 36.8 C 09/06/23 17:08 92 H 96 09/06/23 17:03 91 H 97 09/06/23 17:01 20 09/06/23 17:01 20 09/06/23 16:59 100 H 142/83 H 09/06/23 16:58 96 H 95 09/06/23 16:53 98 H 97 09/06/23 16:48 103 H 97 09/06/23 16:44 100 H 140/75 09/06/23 16:43 100 H 97 09/06/23 16:38 105 H 96 09/06/23 16:33 103 H 97 09/06/23 16:31 20 09/06/23 16:31 20 09/06/23 16:29 100 H 145/79 H 09/06/23 16:28 106 H 97 09/06/23 16:23 103 H 97 09/06/23 16:18 102 H 97 09/06/23 16:14 98 H 154/86 H 09/06/23 16:13 101 H 98 09/06/23 16:08 98 H 98 09/06/23 16:03 95 H 97 09/06/23 16:01 20 09/06/23 16:01 36.9 C 20 09/06/23 16:00 95 H 153/84 H 09/06/23 15:58 101 H 97 09/06/23 15:53 97 H 97 09/06/23 15:48 101 H 98 09/06/23 15:44 91 H 152/83 H 09/06/23 15:43 94 H 99 09/06/23 15:38 95 H 98 09/06/23 15:33 99 H 97 09/06/23 15:31 20 09/06/23 15:31 20 09/06/23 15:29 97 H 151/93 H 09/06/23 15:28 100 H 97 09/06/23 15:23 100 H 97 09/06/23 15:22 108 H 93 09/06/23 15:18 84 98 09/06/23 15:14 146/98 H 09/06/23 15:13 92 H 98 09/06/23 15:08 87 97 09/06/23 15:05 37.0 C 09/06/23 15:03 86 97 09/06/23 15:01 20 09/06/23 15:01 20 09/06/23 14:59 79 127/64 09/06/23 14:58 82 97 09/06/23 14:53 85 97 09/06/23 14:48 82 97 09/06/23 14:44 79 137/69 09/06/23 14:43 82 97 09/06/23 14:38 84 98 09/06/23 14:33 86 97 09/06/23 14:31 20 09/06/23 14:31 20 09/06/23 14:29 90 138/86 09/06/23 14:28 86 98 09/06/23 14:23 90 97 09/06/23 14:18 87 97 09/06/23 14:14 87 136/84 09/06/23 14:13 88 97 09/06/23 14:08 88 97 09/06/23 14:03 88 96 09/06/23 14:01 20 09/06/23 14:01 20 09/06/23 13:59 86 139/84 09/06/23 13:58 89 97 09/06/23 13:53 87 97 09/06/23 13:48 88 97 09/06/23 13:45 86 148/87 H 09/06/23 13:43 89 98 Coding Level of Care Code None Diagnoses premature rupture of membranes (PPROM) with unknown onset of labor O42.919
[2023-09-07] MEDS: fentANYL 2 MCG/ML BUPIVacaine 0.125%-NSS 100ML BAG EPI PRN (02:37)
--- NOTE | 2023-09-07 03:00 | Labor Progress Brief Note ---
Date of Service September 07, 2023 Subjective comfortable, dosing Assessment & Plan (1) premature rupture of membranes (PPROM) with unknown onset of labor: Plan Labor down for 30 min then begin second stage. Fetus reassruing category 2 Admission and Anticipated Discharge Date Admission Date: September 06, 2023 Physical Exam Physical Exam: cx--c/c/0-+1 toco--q2-3min efm--130s with mod variability, small accels, occasional variable Results & Data Vital Signs (Past 12 Hours) Vital Signs Temp Pulse Resp BP Pulse Ox 09/07/23 02:53 78 95 09/07/23 02:48 79 96 09/07/23 02:45 78 151/80 H 09/07/23 02:43 78 95 09/07/23 02:38 88 97 09/07/23 02:33 79 96 09/07/23 02:30 85 141/82 H 09/07/23 02:29 80 151/82 H 09/07/23 02:28 83 96 09/07/23 02:23 88 96 09/07/23 02:18 77 95 09/07/23 02:17 83 94 09/07/23 02:15 75 135/74 09/07/23 02:13 83 95 09/07/23 02:10 83 94 09/07/23 02:08 79 95 09/07/23 02:03 78 93 09/07/23 02:00 20 09/07/23 02:00 20 09/07/23 01:59 73 143/72 H 09/07/23 01:58 79 95 09/07/23 01:57 80 94 09/07/23 01:53 84 97 09/07/23 01:52 81 93 09/07/23 01:48 95 H 97 09/07/23 01:44 83 151/75 H 09/07/23 01:43 87 96 09/07/23 01:38 84 96 09/07/23 01:33 83 96 09/07/23 01:30 20 09/07/23 01:30 36.9 C 20 09/07/23 01:29 77 144/75 H 09/07/23 01:28 83 97 09/07/23 01:23 78 96 09/07/23 01:18 81 97 09/07/23 01:15 76 143/75 H 09/07/23 01:13 81 96 09/07/23 01:08 82 97 09/07/23 01:03 83 97 09/07/23 01:00 16 09/07/23 01:00 16 09/07/23 00:59 75 155/81 H 09/07/23 00:58 79 95 09/07/23 00:54 80 94 09/07/23 00:53 78 97 09/07/23 00:48 83 96 09/07/23 00:44 85 151/85 H 09/07/23 00:43 82 96 09/07/23 00:38 87 98 09/07/23 00:33 87 96 09/07/23 00:30 81 18 148/81 H 09/07/23 00:28 84 97 09/07/23 00:23 85 97 09/07/23 00:18 95 H 97 09/07/23 00:15 83 148/83 H 09/07/23 00:13 80 97 09/07/23 00:08 91 H 96 09/07/23 00:03 83 96 09/07/23 00:00 91 H 18 94 09/06/23 23:59 87 144/77 H 09/06/23 23:58 87 96 09/06/23 23:53 95 H 95 09/06/23 23:48 80 97 09/06/23 23:45 78 147/77 H 09/06/23 23:43 85 97 09/06/23 23:38 84 97 09/06/23 23:33 86 98 09/06/23 23:30 36.9 C 90 18 132/75 09/06/23 23:28 92 H 97 09/06/23 23:23 80 96 09/06/23 23:18 79 96 09/06/23 23:14 74 135/67 09/06/23 23:13 80 96 09/06/23 23:08 80 97 09/06/23 23:03 82 98 09/06/23 23:00 16 09/06/23 23:00 16 09/06/23 22:59 75 138/70 09/06/23 22:58 78 96 09/06/23 22:53 86 97 09/06/23 22:48 91 H 97 09/06/23 22:45 88 144/87 H 09/06/23 22:43 94 H 96 09/06/23 22:38 93 H 97 09/06/23 22:33 86 97 09/06/23 22:30 20 09/06/23 22:30 20 09/06/23 22:29 79 147/76 H 09/06/23 22:28 83 95 09/06/23 22:27 82 94 09/06/23 22:23 87 94 09/06/23 22:21 84 94 09/06/23 22:18 86 95 09/06/23 22:14 81 147/78 H 09/06/23 22:13 82 95 09/06/23 22:08 85 95 09/06/23 22:03 83 96 09/06/23 22:00 86 18 156/89 H 09/06/23 21:58 87 96 09/06/23 21:53 88 96 09/06/23 21:48 80 95 09/06/23 21:44 75 135/64 09/06/23 21:43 80 96 09/06/23 21:38 82 95 09/06/23 21:33 81 97 09/06/23 21:30 36.8 C 80 16 146/75 H 09/06/23 21:28 83 97 09/06/23 21:23 79 96 09/06/23 21:18 81 97 09/06/23 21:14 80 150/84 H 09/06/23 21:13 79 97 09/06/23 21:08 87 97 09/06/23 21:03 87 97 09/06/23 21:00 18 09/06/23 21:00 18 09/06/23 20:59 84 143/79 H 09/06/23 20:58 85 97 09/06/23 20:53 85 96 09/06/23 20:48 85 98 09/06/23 20:44 82 133/74 09/06/23 20:43 83 96 09/06/23 20:38 89 97 09/06/23 20:33 88 96 09/06/23 20:30 87 20 130/80 94 09/06/23 20:28 97 H 95 09/06/23 20:23 98 H 97 09/06/23 20:18 86 96 09/06/23 20:14 86 149/86 H 09/06/23 20:13 86 97 09/06/23 20:08 92 H 97 09/06/23 20:03 87 97 09/06/23 20:00 83 18 132/72 09/06/23 19:58 89 97 09/06/23 19:53 81 96 09/06/23 19:48 85 97 09/06/23 19:44 88 118/66 09/06/23 19:43 88 96 09/06/23 19:38 91 H 97 09/06/23 19:33 95 H 98 09/06/23 19:29 88 150/80 H 09/06/23 19:28 36.8 C 18 09/06/23 19:28 18 09/06/23 19:28 93 H 97 09/06/23 19:23 85 97 09/06/23 19:18 84 98 09/06/23 19:15 85 146/78 H 09/06/23 19:13 87 97 09/06/23 19:08 81 97 09/06/23 19:03 86 97 09/06/23 19:01 20 09/06/23 19:01 20 09/06/23 18:59 82 137/69 09/06/23 18:58 83 96 09/06/23 18:53 83 98 09/06/23 18:48 85 97 09/06/23 18:44 77 131/68 09/06/23 18:43 81 97 09/06/23 18:38 81 97 09/06/23 18:33 87 98 09/06/23 18:29 85 129/72 09/06/23 18:28 84 97 09/06/23 18:23 89 97 09/06/23 18:18 87 97 09/06/23 18:14 85 129/70 09/06/23 18:13 89 96 09/06/23 18:08 89 98 09/06/23 18:03 83 96 09/06/23 18:01 20 09/06/23 18:01 20 09/06/23 17:59 81 131/63 09/06/23 17:58 85 97 09/06/23 17:53 88 97 09/06/23 17:48 87 97 09/06/23 17:44 90 121/66 09/06/23 17:43 89 97 09/06/23 17:38 102 H 98 09/06/23 17:33 99 H 98 09/06/23 17:31 20 09/06/23 17:31 20 09/06/23 17:29 93 H 153/87 H 09/06/23 17:28 94 H 96 09/06/23 17:23 90 96 09/06/23 17:18 89 97 09/06/23 17:14 98 H 149/85 H 09/06/23 17:13 90 96 09/06/23 17:10 36.8 C 09/06/23 17:08 92 H 96 09/06/23 17:03 91 H 97 09/06/23 17:01 20 09/06/23 17:01 20 09/06/23 16:59 100 H 142/83 H 09/06/23 16:58 96 H 95 09/06/23 16:53 98 H 97 09/06/23 16:48 103 H 97 09/06/23 16:44 100 H 140/75 09/06/23 16:43 100 H 97 09/06/23 16:38 105 H 96 09/06/23 16:33 103 H 97 09/06/23 16:31 20 09/06/23 16:31 20 09/06/23 16:29 100 H 145/79 H 09/06/23 16:28 106 H 97 09/06/23 16:23 103 H 97 09/06/23 16:18 102 H 97 09/06/23 16:14 98 H 154/86 H 09/06/23 16:13 101 H 98 09/06/23 16:08 98 H 98 09/06/23 16:03 95 H 97 09/06/23 16:01 20 09/06/23 16:01 36.9 C 20 09/06/23 16:00 95 H 153/84 H 09/06/23 15:58 101 H 97 09/06/23 15:53 97 H 97 09/06/23 15:48 101 H 98 09/06/23 15:44 91 H 152/83 H 09/06/23 15:43 94 H 99 09/06/23 15:38 95 H 98 09/06/23 15:33 99 H 97 09/06/23 15:31 20 09/06/23 15:31 20 09/06/23 15:29 97 H 151/93 H 09/06/23 15:28 100 H 97 09/06/23 15:23 100 H 97 09/06/23 15:22 108 H 93 09/06/23 15:18 84 98 09/06/23 15:14 146/98 H 09/06/23 15:13 92 H 98 09/06/23 15:08 87 97 09/06/23 15:05 37.0 C 09/06/23 15:03 86 97 09/06/23 15:01 20 09/06/23 15:01 20 09/06/23 14:59 79 127/64 Coding Level of Care Code None Diagnoses premature rupture of membranes (PPROM) with unknown onset of labor O42.919
--- NOTE | 2023-09-07 04:43 | Labor Progress Brief Note ---
Date of Service September 07, 2023 Subjective just started pushing. Assessment & Plan (1) premature rupture of membranes (PPROM) with unknown onset of labor: Plan overall reassuring fetus. continue second stage. Admission and Anticipated Discharge Date Admission Date: September 06, 2023 Physical Exam Physical Exam: cx--caput at +2, good effort, baby moving. toco--q2min efm--120s with mod variability, baseline 110s with pushing. Results & Data Vital Signs (Past 12 Hours) Vital Signs Temp Pulse Resp BP Pulse Ox 09/07/23 04:33 87 99 09/07/23 04:30 103 H 89 L 09/07/23 04:29 98 H 145/83 H 09/07/23 04:28 110 H 99 09/07/23 04:25 104 H 91 09/07/23 04:23 88 97 09/07/23 04:18 85 98 09/07/23 04:14 93 H 151/83 H 09/07/23 04:13 82 98 09/07/23 04:08 75 96 09/07/23 04:03 76 96 09/07/23 04:00 16 09/07/23 04:00 16 09/07/23 03:59 73 148/72 H 09/07/23 03:58 76 97 09/07/23 03:53 76 96 09/07/23 03:48 79 96 09/07/23 03:44 77 150/71 H 09/07/23 03:43 77 97 09/07/23 03:38 82 97 09/07/23 03:33 85 97 09/07/23 03:30 18 09/07/23 03:30 36.9 C 18 09/07/23 03:29 86 158/87 H 09/07/23 03:28 81 96 09/07/23 03:23 85 97 09/07/23 03:18 83 97 09/07/23 03:14 85 158/85 H 09/07/23 03:13 84 97 09/07/23 03:08 90 98 09/07/23 03:03 95 H 96 09/07/23 03:00 16 09/07/23 03:00 16 09/07/23 02:59 96 H 161/90 H 09/07/23 02:58 101 H 97 09/07/23 02:53 78 95 09/07/23 02:48 79 96 09/07/23 02:45 78 151/80 H 09/07/23 02:43 78 95 09/07/23 02:38 88 97 09/07/23 02:33 79 96 09/07/23 02:30 85 141/82 H 09/07/23 02:29 80 151/82 H 09/07/23 02:28 83 96 09/07/23 02:23 88 96 09/07/23 02:18 77 95 09/07/23 02:17 83 94 09/07/23 02:15 75 135/74 09/07/23 02:13 83 95 09/07/23 02:10 83 94 09/07/23 02:08 79 95 09/07/23 02:03 78 93 09/07/23 02:00 20 09/07/23 02:00 20 09/07/23 01:59 73 143/72 H 09/07/23 01:58 79 95 09/07/23 01:57 80 94 09/07/23 01:53 84 97 09/07/23 01:52 81 93 09/07/23 01:48 95 H 97 09/07/23 01:44 83 151/75 H 09/07/23 01:43 87 96 09/07/23 01:38 84 96 09/07/23 01:33 83 96 09/07/23 01:30 20 09/07/23 01:30 36.9 C 20 09/07/23 01:29 77 144/75 H 09/07/23 01:28 83 97 09/07/23 01:23 78 96 09/07/23 01:18 81 97 09/07/23 01:15 76 143/75 H 09/07/23 01:13 81 96 09/07/23 01:08 82 97 09/07/23 01:03 83 97 09/07/23 01:00 16 09/07/23 01:00 16 09/07/23 00:59 75 155/81 H 09/07/23 00:58 79 95 09/07/23 00:54 80 94 09/07/23 00:53 78 97 09/07/23 00:48 83 96 09/07/23 00:44 85 151/85 H 09/07/23 00:43 82 96 09/07/23 00:38 87 98 09/07/23 00:33 87 96 09/07/23 00:30 81 18 148/81 H 09/07/23 00:28 84 97 09/07/23 00:23 85 97 09/07/23 00:18 95 H 97 09/07/23 00:15 83 148/83 H 09/07/23 00:13 80 97 09/07/23 00:08 91 H 96 09/07/23 00:03 83 96 09/07/23 00:00 91 H 18 94 09/06/23 23:59 87 144/77 H 09/06/23 23:58 87 96 09/06/23 23:53 95 H 95 09/06/23 23:48 80 97 09/06/23 23:45 78 147/77 H 09/06/23 23:43 85 97 09/06/23 23:38 84 97 09/06/23 23:33 86 98 09/06/23 23:30 36.9 C 90 18 132/75 09/06/23 23:28 92 H 97 09/06/23 23:23 80 96 09/06/23 23:18 79 96 09/06/23 23:14 74 135/67 09/06/23 23:13 80 96 09/06/23 23:08 80 97 09/06/23 23:03 82 98 09/06/23 23:00 16 09/06/23 23:00 16 09/06/23 22:59 75 138/70 09/06/23 22:58 78 96 09/06/23 22:53 86 97 09/06/23 22:48 91 H 97 09/06/23 22:45 88 144/87 H 09/06/23 22:43 94 H 96 09/06/23 22:38 93 H 97 09/06/23 22:33 86 97 09/06/23 22:30 20 09/06/23 22:30 20 09/06/23 22:29 79 147/76 H 09/06/23 22:28 83 95 09/06/23 22:27 82 94 09/06/23 22:23 87 94 09/06/23 22:21 84 94 09/06/23 22:18 86 95 09/06/23 22:14 81 147/78 H 09/06/23 22:13 82 95 09/06/23 22:08 85 95 09/06/23 22:03 83 96 09/06/23 22:00 86 18 156/89 H 09/06/23 21:58 87 96 09/06/23 21:53 88 96 09/06/23 21:48 80 95 09/06/23 21:44 75 135/64 09/06/23 21:43 80 96 09/06/23 21:38 82 95 09/06/23 21:33 81 97 09/06/23 21:30 36.8 C 80 16 146/75 H 09/06/23 21:28 83 97 09/06/23 21:23 79 96 09/06/23 21:18 81 97 09/06/23 21:14 80 150/84 H 09/06/23 21:13 79 97 09/06/23 21:08 87 97 09/06/23 21:03 87 97 09/06/23 21:00 18 09/06/23 21:00 18 09/06/23 20:59 84 143/79 H 09/06/23 20:58 85 97 09/06/23 20:53 85 96 09/06/23 20:48 85 98 09/06/23 20:44 82 133/74 09/06/23 20:43 83 96 09/06/23 20:38 89 97 09/06/23 20:33 88 96 09/06/23 20:30 87 20 130/80 94 09/06/23 20:28 97 H 95 09/06/23 20:23 98 H 97 09/06/23 20:18 86 96 09/06/23 20:14 86 149/86 H 09/06/23 20:13 86 97 09/06/23 20:08 92 H 97 09/06/23 20:03 87 97 09/06/23 20:00 83 18 132/72 09/06/23 19:58 89 97 09/06/23 19:53 81 96 09/06/23 19:48 85 97 09/06/23 19:44 88 118/66 09/06/23 19:43 88 96 09/06/23 19:38 91 H 97 09/06/23 19:33 95 H 98 09/06/23 19:29 88 150/80 H 09/06/23 19:28 36.8 C 18 09/06/23 19:28 18 09/06/23 19:28 93 H 97 09/06/23 19:23 85 97 09/06/23 19:18 84 98 09/06/23 19:15 85 146/78 H 09/06/23 19:13 87 97 09/06/23 19:08 81 97 09/06/23 19:03 86 97 09/06/23 19:01 20 09/06/23 19:01 20 09/06/23 18:59 82 137/69 09/06/23 18:58 83 96 09/06/23 18:53 83 98 09/06/23 18:48 85 97 09/06/23 18:44 77 131/68 09/06/23 18:43 81 97 09/06/23 18:38 81 97 09/06/23 18:33 87 98 09/06/23 18:29 85 129/72 09/06/23 18:28 84 97 09/06/23 18:23 89 97 09/06/23 18:18 87 97 09/06/23 18:14 85 129/70 09/06/23 18:13 89 96 09/06/23 18:08 89 98 09/06/23 18:03 83 96 09/06/23 18:01 20 09/06/23 18:01 20 09/06/23 17:59 81 131/63 09/06/23 17:58 85 97 09/06/23 17:53 88 97 09/06/23 17:48 87 97 09/06/23 17:44 90 121/66 09/06/23 17:43 89 97 09/06/23 17:38 102 H 98 09/06/23 17:33 99 H 98 09/06/23 17:31 20 09/06/23 17:31 20 09/06/23 17:29 93 H 153/87 H 09/06/23 17:28 94 H 96 09/06/23 17:23 90 96 09/06/23 17:18 89 97 09/06/23 17:14 98 H 149/85 H 09/06/23 17:13 90 96 09/06/23 17:10 36.8 C 09/06/23 17:08 92 H 96 09/06/23 17:03 91 H 97 09/06/23 17:01 20 09/06/23 17:01 20 09/06/23 16:59 100 H 142/83 H 09/06/23 16:58 96 H 95 09/06/23 16:53 98 H 97 09/06/23 16:48 103 H 97 09/06/23 16:44 100 H 140/75 09/06/23 16:43 100 H 97 Coding Level of Care Code None Diagnoses premature rupture of membranes (PPROM) with unknown onset of labor O42.919
[2023-09-07] MEDS: LACTATED RINGER'S 1,000 ML IV PRN (05:43)
[2023-09-07] MEDS: OXYTOCIN 30 UNITS/NSS 30 UNITS/500 ML BAG IV PRN (06:41)
[2023-09-07] MEDS ORDERED: DIPHTHER/TETAN/PERTUS Vaccine (Tdap, Adol/Adult) 0.5mL IM ONE (07:43)
[2023-09-07] MEDS ORDERED: HYDROCORTISONE ACETATE 25 MG SUPP PR PRN (07:43)
[2023-09-07] MEDS ORDERED: PHARMACY GLYCEMIC MGMT CONSULT PRN (07:43)
[2023-09-07] MEDS ORDERED: OXYTOCIN 30 UNITS/NSS 30 UNITS/500 ML BAG IV PRN (07:43)
[2023-09-07] MEDS ORDERED: BENZOCAINE 20% SPRY 85 APPLN/85 GM CAN EXT PRN (07:43)
[2023-09-07] MEDS ORDERED: oxyCODONE/ACETAMINOPHEN 5mg/325mg TAB PO PRN (07:43)
[2023-09-07] MEDS ORDERED: OXYTOCIN 20 UNITS/LR 1,002 ML IV SCH (07:45)
[2023-09-07] MEDS ORDERED: CALCIUM CARBONATE 500 MG CHEWABLE TAB PO PRN (07:47)
--- NOTE | 2023-09-07 07:54 | Delivery Summary ---
Vaginal Delivery Summary Date of Service September 07, 2023 Vaginal Delivery Summary Pre-operative Diagnosis: at 36 weeks Type 2 Diabetes chtn pprom Post-operative Diagnosis: same Procedure: pitocin induction insulin drip labetolol po EBL: 300cc Anesthesia: epidural Procedure: The patient presented to labor and delivery with pprom at 36 3/7 weeks. She was unknown gbs so pnc was started. She was started on pitocin and then received an epidural. She continued pitocin and progressed very slowly. she was 9cm for about 3 hours. She then labored down for one hour. The patient pushed for 3 hours to deliver a viable male in livier position. The nose and mouth were bulb suctioned on the perineum and the rest of the infant was then delivered without difficulty. Their was no nuchal cord. The baby was floppy and did not have spontaneous breathing. The infant was placed in the maternal abdomen for drying and attention but did not improve and was taken to the warmer and required resucitation. Cord was clamped and cut. Cord blood and segment obtained. Placenta delivered spontaneous, intact with a three vessel cord. Cervix/sulci/rectum/perineum were intact. Hemostasis obtained with dilute pitocin and fundal massage. Apgars were 1/7/8. Mother doing well at the end of the delivery. [facility] Vaginal Delivery Charge Delivery Type Details: [facility]
[2023-09-07 07:57] LABS: Base Excess Cord Arterial Bld -4.9 mEq/L (-9-1.8); Base Excess Cord Venous Blood -6.3 mEq/L (-7.7-1.9); CO2 Cord Arterial Blood 47 mmHg (39.1-73.5); Cord Venous Blood HCO3 20 mmol/L (18.4-26.8); Cord Venous Blood PCO2 40 mmHg (30.4-57.2); Cord Venous Blood PO2 36 mmHg (14.1-43.3); HCO3 Cord Arterial Blood 22 mmol/L (19.7-28.5); O2 Saturation Cord Venous Bld 67.3 % (<68); Oxygen Sat Cord Arterial Blood < 60.0 % (<60); PO2 Cord Arterial Blood 27 mmHg (4.1-31.7); pH Cord Arterial Blood 7.28 (7.1-7.38)
[2023-09-07] MEDS ORDERED: PRENATAL VITAMIN 1 TAB PO SCH (08:00)
[2023-09-07] MEDS: INSULIN ASPART PER UNIT CHARGE SC SCH ×4 (08:09→21:20)
[2023-09-07] MEDS ORDERED: Nursing to Pharmacy Communication SCH (08:15)
[2023-09-07] MEDS ORDERED: lamoTRIgine 25 MG TAB PO SCH ×2 (09:00→21:00)
[2023-09-07] MEDS: DOCUSATE SODIUM 100 MG CAP PO SCH ×2 (09:01→21:21)
[2023-09-07] MEDS: LABETALOL HCL 200 MG TAB PO SCH ×2 (09:02→21:24)
[2023-09-07] MEDS: IBUPROFEN 600 MG TAB PO PRN ×3 (10:24→22:51)
--- NOTE | 2023-09-07 10:42 | Anesthesia Procedure Note ---
Date of Service September 07, 2023 Anesthesia Post Epidural Note Vital Signs Vital Signs: Temp Pulse Resp BP Pulse Ox 36.9 C 74 20 167/83 H 98 09/07/23 05:25 09/07/23 10:29 09/07/23 09:30 09/07/23 10:29 09/07/23 07:33 Pain Intensity Bilateral Abdomen: Pain Intensity: 0 Notes Mental Status: alert / awake / arousable and participated in evaluation Nausea / Vomiting: adequately controlled Pain: adequately controlled Airway Patency, RR, SpO2: stable & adequate BP & HR: stable & adequate Hydration State: stable & adequate Neuraxial Anesthesia: was administered and sensory block resolved Anesthetic Complications: no major complications apparent and Pt Satisfied with anesthetic care Epidural: Removed without complications and With tip intact
[2023-09-07 12:01] LABS: Hematocrit (blood only) 38.7 % (37.0-47.0); Hemoglobin 13.4 g/dl (12.0-16.0); Mean Corpuscular Hemoglobin 31.2 pg (25.0-34.0); Mean Corpuscular Hgb Conc 34.6 g/dL (32.0-36.0); Mean Corpuscular Volume 90.2 fL (80.0-100.0); Mean Platelet Volume 9.7 fL (9.4-12.4); Platelet Count 266 K/uL (130-400); RDW Coefficient of Variation 12.9 % (11.5-14.5); RDW Standard Deviation 41.9 fL (36.4-46.3); Red Blood Count 4.29 M/uL (4.20-5.40); White Blood Count 23.05 K/ul (4.8-10.8)
[2023-09-07 12:14] LABS: Albumin Globulin Ratio 1.1 (0.9-2); Albumin Level 3.3 gm/dl (3.4-5.0); BUN Creatinine Ratio 10.4 (10-20); Bilirubin,Total 1.3 mg/dl (0.2-1.0); Creatinine Clr Calc Pharmacy 126.3 ml/min; Est GFR (African American) 120.1 ml/min; Est GFR (Non-African American) 103.6 ml/min; Potassium 3.6 mmol/L (3.5-5.1); Total Protein 6.3 gm/dl (6.0-8.3)
[2023-09-07 12:54] LABS: Creatinine Urine Random 69.1 mg/dl; Protein Creatinine Ratio Urine 0.2 (0-0.2); Total Protein Urine Random 15.2 mg/dl (0-11.9)
[2023-09-07] MEDS: ACETAMINOPHEN 325 MG TAB PO PRN ×2 (12:57→22:51)
--- NOTE | 2023-09-07 13:15 | Communication Note ---
Date of Service: September 07, 2023 Informed by nursing that patient had elevated BPs after delivery and after she received her labetalol this AM. She notes some of those bps were while she was sitting up and watching nursing take care of baby. BPs have otherwise been labile. Denies s/s PET. Initial PET labs on admission were wnl. Repeat PET labs were wnl, UPC was normal by straight cath. Discussed w/ pt trying to figure out if chtn exacerbation/related bps vs superimposed PET and difficulty with differentiating. She notes her BPs at home are normally in the 140s, is on labetalol 200mg PO BID. At this point, bps are mild range, there were 2 severe recently that pt said was movement related. Labs are normal and UPC is not elevated. I think this is more of a chtn related bps rather than superimposed pet at this point. Will continue to monitor however if bps rapidly increase/require significant more med, will re-eval. S/S PET reviewed and she will let us know if that happens as well.
--- NOTE | 2023-09-07 14:46 | Pharmacy Report ---
Pharmacy Glycemic Short Note 2 - Date of Service September 07, 2023 - Glycemic Short BSG Results (Last 24 hours): 09/06/23 09/06/23 09/06/23 15:12 16:23 17:35 Glucose POC Glucose 92 84 88 09/06/23 09/06/23 09/06/23 18:23 19:27 20:34 Glucose POC Glucose 88 88 85 09/06/23 09/06/23 09/06/23 21:34 22:32 23:28 Glucose POC Glucose 88 91 97 09/07/23 09/07/23 09/07/23 00:31 01:37 02:27 Glucose POC Glucose 100 H 100 H 99 09/07/23 09/07/23 09/07/23 03:33 05:15 06:14 Glucose POC Glucose 100 H 108 H 114 H 09/07/23 09/07/23 09/07/23 08:09 11:36 11:41 Glucose 145 H POC Glucose 99 134 H OUTPATIENT ANTIDIABETIC REGIMEN: * Lantus 10 units QAM * Lantus 14 units QPM * Novolog 50 units TID by carb counting CR 1 unit per 1.25g CHO (Max 150 units daily) * HbA1c 5.0% (08/24/23) * pre- HbA1c 10.7% (10/12/22) ASSESSMENT: * Kristi is a 28 YOF status post vaginal delivery. Pharmacy has been consulted for glycemic management while admitted. * She was started on insulin infusion/dextrose protocol and was tightly controlled during labor. * Typically, women started on basal/bolus regimen during may not need to continue and can return to previous diabetes regimen However, pre- HbA1c uncontrolled. Will continue with loose basal bolus insulin while inpatient and recommend follow-up with endocrinology regarding diabetes management plan once discharged. Will aim for less than 30-50% of antepartum insulin regimen while inpatient and monitor for trends. * Novolog initiated at a weight based stress of 1 and small dose of basal insulin twice daily if BSGs are elevated PLAN FOR INPATIENT GLYCEMIC CONTROL: * Hold outpatient oral diabetes medications * Basal insulin * Lantus 5 units SQ BID if BSG greater than 180mg/dL * Bolus insulin * NovoLog per scale ACHS or Q6hrs while NPO * Goal Range: Low 110 mg/dL - High 140 mg/dL * Correction Factor: 45 mg/dL/unit * Nutritional / Prandial insulin per carb ratio of 1 unit per 15 grams CHO consumed
[2023-09-07] MEDS ORDERED: LANTUS PER UNIT CHARGE SC SCH (21:00)
--- NOTE | 2023-09-07 23:26 | Communication Note ---
Date of Service: September 07, 2023 Met with patient, unfortunately baby is getting transferred to [facility] NICU due to ?seizures. Patient states that she can't mentally stay here knowing that baby is at [facility] and says if the baby is leaving then she will as well. Discussed that I would recommend she stay to make sure blood pressures remain adequately controlled as well as BG. BG have been good, more recently bps have been better but have been labile throughout admission including earlier this AM. Discussed risk of worsening BPs/potential superimposed pre-eclampsia, stroke/mi/ if blood pressures become very severe. She verbalized understanding and understands why, still desires to leave with the baby. Unfortunately, would need to sign out ama as I do not feel that she is quite medically stable yet and she is understanding of this. AMA form signed. She does have enough bp meds and insulin at home to monitor. Reviewed if she notes s/s pet or severely elevated bps, she needs to be evaluated marlena and she is aware.
== END 2023-09-08 02:00 | disposition left against medical advice (07) | DRG 805 ==
LOC: OPB 23:37 → 4S1 23:38 → 4E2 09-07 14:39